=== PATIENT | female | born 1955 ===

== ENCOUNTER → 2017-12-01 | Outpatient (CLI) | payer BC, OTHER ==
[~2017-12-01] MED LIST: ESOM40CA52 PO; HCT25T PO; LEVO5TAB12 PO; LISI1TAB8 PO; OMEP-10 PO; RECEIVED CONTRAST (Hold Metformin) IV SCH
[2017-12-01] MEDS: NS 250 ML (IVPB) BAG IV ONE (11:34)
[2017-12-01] MEDS: IOHEXOL 350 MG/ML 100 ML (OMNIPAQUE 350) VIAL IV ONE (11:34)
[2017-12-01] MEDS: CATHETER FLUSH 10 ML SYR IV PRN (11:34)
--- NOTE | 2017-12-01 12:11 | Diagnostic Imaging Report ---
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 EXAM: Axial CT scan of the neck soft tissue performed with 75 cc of Omnipaque 350 IV contrast. Coronal and sagittal reformatted images are created. COMPARISON: CT scan of the neck soft tissue with contrast dated 08/22/2013. FINDINGS: The nasopharynx, oropharynx, hypopharynx, and laryngeal soft tissue structures are unremarkable and no mass seen. There is mild asymmetry of the piriform sinuses with the right side slightly more prominent than the left which shows no underlying abnormality. The aerodigestive tract is patent. The bilateral salivary glands show no significant abnormality. Stable small left thyroid gland. Again seen small nodules in the thyroid gland bilaterally. Again seen small area of subcutaneous amorphous density to the right of midline posteriorly at the C7 vertebral body level which demonstrates a 5 mm circumscribed low-density area. This may represent a sebaceous cyst. This was not completely imaged on the prior study. There is no neck lymphadenopathy. Visualized portion of the oral cavity, tongue, sublingual and submandibular regions are unremarkable. Visualized upper lung cochran are clear. There is bony thickening and sclerosis involving the bilateral maxillary sinuses with mild to moderate patchy mucosal thickening. There are degenerative spurs involving the mid to lower cervical spine. IMPRESSION: 1: There is no significant neck soft tissue abnormality. The aerodigestive tract is patent. There is no lymphadenopathy. 2: Suspected sebaceous cyst in the right of midline posterior lower neck region. This was incompletely imaged on the prior study. 3: Bilateral maxillary sinus disease with chronic bony changes. Dictated by: Dictated on workstation # [id number]
== END ==
LOC: RAD 10:43
PROVIDERS: ATTEND Nurse Practitioner Family
DX: R07.0 Pain in throat (principal); J32.0 Chronic maxillary sinusitis
CPT/HCPCS: 70491

== ENCOUNTER 2017-12-14 14:30 | Outpatient (CLI) | payer BC ==
[~2017-12-14] VITALS: Ht 156.2 cm; Wt 71.7 kg
[~2017-12-14 14:30] MED LIST changes: -ESOM40CA52 PO; -LEVO5TAB12 PO; -RECEIVED CONTRAST (Hold Metformin) IV SCH
[2017-12-14 14:36] VITALS: BP 119/70
[2017-12-14] MEDS ORDERED: LISI1TAB8 PO (14:39)
[2017-12-14] MEDS ORDERED: ESOM40CA52 PO (14:39)
[2017-12-14] MEDS ORDERED: LEVO5TAB12 PO (14:39)
[2017-12-14 15:02] LABS: BASOPHILS % (AUTO) 0 % (0-10); EOSINOPHILS # (AUTO) 0.3 10^3/uL (0.0-0.3); EOSINOPHILS % (AUTO) 4 % (0-10); HEMATOCRIT 40 % (35-52); LYMPHOCYTES # (AUTO) 1.6 X 10^3 (1.0-4.0); LYMPHOCYTES % (AUTO) 22 % (12-44); MEAN CORPUSCULAR HEMOGLOBIN 28 PG (25-34); MEAN CORPUSCULAR HGB CONC 33 G/DL (32-36); MEAN CORPUSCULAR VOLUME 84 FL (80-99); MEAN PLATELET VOLUME 10.6 FL (7.4-10.4); MONOCYTES # (AUTO) 0.7 X 10^3 (0.0-1.0); MONOCYTES % (AUTO) 9 % (0-12); NEUTROPHILS # (AUTO) 4.7 X 10^3 (1.8-7.8); NEUTROPHILS % (AUTO) 65 % (42-75); PLATELET COUNT 242 10^3/uL (130-400); RED BLOOD COUNT 4.72 10^6/uL (4.35-5.85); RED CELL DISTRIBUTION WIDTH 14.4 % (10.0-14.5); WHITE BLOOD COUNT 7.2 10^3/uL (4.3-11.0)
[2017-12-14 15:39] LABS: BUN/CREATININE RATIO 20; CALCIUM 9.2 MG/DL (8.5-10.1); CARBON DIOXIDE 25 MMOL/L (21-32); CHLORIDE 103 MMOL/L (98-107); CREATININE SERUM 0.71 MG/DL (0.60-1.30); GFR ESTIMATED > 60; GLUCOSE 98 MG/DL (70-105); POTASSIUM 4.1 MMOL/L (3.6-5.0); SODIUM 140 MMOL/L (135-145)
== END 2017-12-14 15:00 | disposition home or self-care (01) ==
LOC: PREOP 14:30
PROVIDERS: ATTEND Otolaryngology Otolaryngology/Facial Plastic Surgery
DX: Z01.810 Encounter for preprocedural cardiovascular examination (principal); Z01.812 Encounter for preprocedural laboratory examination; K14.9 Disease of tongue, unspecified; Z11.2 Encounter for screening for other bacterial diseases
CPT/HCPCS: 36415; 80048; 85025; 87081; 93005

== ENCOUNTER 2017-12-22 06:45 | Day surgery (SDC) | payer BC ==
[~2017-12-22] VITALS: Ht 156.2 cm; Wt 71.7 kg
[~2017-12-22 06:45] MED LIST changes: +ESOM40CA52 PO; +LEVO5TAB12 PO
--- OUTSIDE RECORDS SUMMARY | 2017-12-22 06:50 | XMS REPORT ---
Author Author PENNY AYERS Organization [employer] Address Unknown Phone Unavailable Care Team Providers Care Area Sales Manager Name Role Phone PENNY AYERS CP Unavailable Allergies No Known Allergies Problems Problem Type Condition Code Onset Dates Condition Status Problem Chronic pharyngitis 472.1 Active Problem Other and unspecified hyperlipidemia 272.4 Active Problem Unspecified breast screening V76.10 Active Assessment Elevated fasting glucose R73.01 Active Problem Pure hypercholesterolemia E78.0 Active Problem Hypertension, essential I10 Active Problem Cystic thyroid nodule E04.1 Active Problem Costochondritis 733.6 Active Problem Other disorder of menstruation and other abnormal bleeding from female genital tract 626.8 Active Problem Allergic rhinitis, unspecified allergic rhinitis type J30.9 Active Problem Mammogram abnormal 793.80 Active Medications Medication Code System Code Instructions Start Date End Date Status Dosage Simvastatin [facility] [address]-74 20 mg Orally Once a day Mar 01, 2016 1 tablet in the evening Results No Known Results Summary Purpose eClinicalWorks Submission
--- OUTSIDE RECORDS SUMMARY | 2017-12-22 06:51 | XMS REPORT ---
Author Author PENNY AYERS Organization [employer] Address Unknown Phone Unavailable Care Team Providers Care Equity Director Name Role Phone PENNY AYERS CP Unavailable Allergies No Known Allergies Problems Problem Type Condition Code Onset Dates Condition Status Problem Chronic pharyngitis 472.1 Active Problem Other and unspecified hyperlipidemia 272.4 Active Problem Unspecified breast screening V76.10 Active Problem Pure hypercholesterolemia E78.0 Active Problem Hypertension, essential I10 Active Problem Cystic thyroid nodule E04.1 Active Problem Costochondritis 733.6 Active Problem Other disorder of menstruation and other abnormal bleeding from female genital tract 626.8 Active Problem Allergic rhinitis, unspecified allergic rhinitis type J30.9 Active Problem Mammogram abnormal 793.80 Active Assessment Hypertension, essential I10 Active Assessment Pure hypercholesterolemia E78.0 Active Assessment Cystic thyroid nodule E04.1 Active Medications No Known Medications Procedures Procedure Coding System Code Date THYROGLOBULIN ANTIBODY CPT-4 94877 Feb 23, 2016 ASSAY THYROID STIM HORMONE CPT-4 90105 Feb 23, 2016 MICROSOMAL ANTIBODY CPT-4 99786 Feb 23, 2016 VENIPUNCT, ROUTINE* CPT-4 75452 Feb 23, 2016 ASSAY, TRIIODOTHYRONINE (T3) CPT-4 37252 Feb 23, 2016 ASSAY OF FREE THYROXINE CPT-4 74611 Feb 23, 2016 COMPREHEN METABOLIC PANEL CPT-4 50158 Feb 23, 2016 LIPID PANEL CPT-4 94777 Feb 23, 2016 Results No Known Results Summary Purpose [employer]Works Submission
--- OUTSIDE RECORDS SUMMARY | 2017-12-22 06:51 | XMS REPORT ---
Author Author PENNY AYERS Organization [facility] Address [address] [place] [address] Care Team Providers Care Soil Biology Teacher Name Role Phone ROMEO AYERSSON Unavailable PROBLEMS Type Condition ICD9-CM Code UIR76-OC Code Onset Dates Condition Status SNOMED Code Problem Chronic pharyngitis 472.1 Active 860712 Problem Mammogram abnormal 793.80 Active 459871824 Problem Other and unspecified hyperlipidemia 272.4 Active 29896924 Problem Unspecified breast screening V76.10 Active 499504027 Problem Costochondritis 733.6 Active 14655062 Problem Other disorder of menstruation and other abnormal bleeding from female genital tract 626.8 Active 825087160 Problem Other chronic pain G89.29 Active 09032300 Problem Pain in throat R07.0 Active 65411281 Problem Hypertension, essential I10 Active 45627148 Problem Allergic rhinitis, unspecified allergic rhinitis type J30.9 Active 69181857 Problem Cystic thyroid nodule E04.1 Active 101702122 Problem Pure hypercholesterolemia E78.0 Active 765989662 ALLERGIES Unknown Allergies SOCIAL HISTORY No smoking Hx information available PLAN OF CARE VITAL SIGNS MEDICATIONS Unknown Medications RESULTS Name Result Date Reference Range Ultrasound : Thyroid 2016-08-10 PROCEDURES No Known procedures IMMUNIZATIONS No Known Immunizations
--- OUTSIDE RECORDS SUMMARY | 2017-12-22 06:51 | XMS REPORT ---
Author Author PENNY AYERS Organization [facility] Address [address] [place] [address] Care Team Providers Care Music Producer Name Role Phone PENNY AYERS Unavailable PROBLEMS Type Condition ICD9-CM Code YHM79-NT Code Onset Dates Condition Status SNOMED Code Problem Other chronic pain G89.29 Active 10158476 Problem Pain in throat R07.0 Active 00361887 Problem Hypertension, essential I10 Active 07971918 Problem Allergic rhinitis, unspecified allergic rhinitis type J30.9 Active 40475616 Problem Cystic thyroid nodule E04.1 Active 961433326 Problem Pure hypercholesterolemia E78.0 Active 442172161 ALLERGIES No Information ENCOUNTERS Encounter Location Date Diagnosis [facility] [id number] [id number] Jun, Dental examination Z01.20 and Dental caries K02.9 [facility] [address] [id number] [place] [id number] May, Hypertension, essential I10 [facility] [address] [id number] [place] [id number] Apr, [facility] [id number] [place] [id number] Mar, [facility] [address] [id number] [place] [id number] Mar, [facility] [address] [id number] [place] [id number] Mar, Hypertension, essential I10 [address] [id number] [place] [id number] Mar, Hypertension, essential I10 ; Other chronic pain G89.29 ; Pain in throat R07.0 and Breast cancer screening Z12.31 [facility] [address] [id number] [place] [id number] Feb, Hypertension, essential I10 [facility] [address] [id number] [place] [id number] Jul, Cystic thyroid nodule E04.[address] [facility] [address] [id number] [place]LEY[place] [id number] Feb, Elevated fasting glucose R73.[address] [facility] [address] [id number] [place] [id number] Feb, Elevated fasting glucose R73.[address] [facility] [address] [id number] [place] [address] Feb, Cystic thyroid nodule E04.1 ; Pure hypercholesterolemia E78.0 and Hypertension, essential I10 [facility] [address] [id number] [place] [id number] Feb, [facility] [address] [id number] [place] [id number] Feb, Cystic thyroid nodule E04.1 [facility] [address] [id number] [id number] Feb, [facility] [address] [id number] [place] [id number] Feb, Hypertension, essential I10 and Pharyngeal dysphagia R13.[address] [facility] [address] [id number] [place]LEY[place] [id number] Dec, [facility] [address] [id number] [place] [id number] Dec, Pure hypercholesterolemia E78.0 and Hypertension, essential I10 [facility] [address] [id number] [place] [id number] November, [facility] [address] [id number] [place] [id number] November, Hypertension, essential I10 ; Pure hypercholesterolemia E78.0 and Allergic rhinitis, unspecified allergic rhinitis type J30.9 [facility]ITALCheryle SMALLWOODRODRIGUEZ [address] [facility] [address] [id number] VALLEY[place] [id number] November, [facility] [facility] [address] [id number] [place] [id number] November, [facility] [address] [facility] [address] [id number] VALLEY[place] [id number] November, [facility] Torres [facility] [address] [id number] [place] [id number] November, Visit for routine cat and dog bather exam V72.31 ; Pap smear for cervical cancer screening V76.2 ; Mammogram abnormal 793.80 and Colon cancer screening V76.51 [facility] [address] [id number] [place] [id number] November, Abnormal mammogram, unspecified 793.80 [facility] [place] [facility] [address], [place] [address] Oct, [facility] [place] [facility] [address]00565100[place], [place] [address] Oct, [facility] [place] [facility] [address]65100[place], [place] [address] Aug, [facility] [place] [facility] [address]65100[place], [place] [address] Aug, [facility] [place] [facility] [address], [place] [address] Jul, [facility] [place] [facility] [address], [place] [address] Jul, [facility] [place] [facility] [address]65100[place], [place] [address] Jul, [facility] [place] [facility] [address] [address] Jul, [facility] [place] [facility] [address], [place] [address] Jul, [facility] [place] [facility] [address] [id number] [place] [address] Jul, [facility] [place] [facility] [address] [id number] [place] [address] Jul, [facility] [place] [facility] [address] [id number] [place] [address] Jul, [facility] [place] [facility] [address] [id number] [place] [address] Jul, [facility] [place] [facility] [address] [id number] [place] [address] Jul, [facility] [place] [facility] [address] [id number] [place] [address] Jul, [facility] [address] [id number] [place] [address] May, [facility] [address] [id number] [place] [id number] May, [facility] [address] [id number] [place] [address] May, [facility] [place] [facility] [address] [id number] [place] [address] May, [facility] [place] [facility] [address] [id number] [place] [address] Apr, [facility] [place] [facility] [address] [id number] [place] [address] Apr, [facility] [place] [facility] [address] [id number] [place] [address] Jan, [facility] [place] [facility] [address] [id number] [place] [address] Jan, [facility] [place] [facility] [address] [id number] [place] [address] Dec, [facility] [place] [facility] [address] [id number] [place] [address]- [address] Dec, [facility] [place] [facility] [address] [id number] [place] [address] Dec, [facility] [place] [facility] [address] [id number] [place] [address] Dec, [facility] [place] [facility] [address] [id number] [place] [address] Dec, [facility] [place] [facility] [address] [id number] [place] [address] Dec, [facility] [place] [facility] [address] [id number] [place] [address] Oct, [facility] [place] [facility] [address] [id number] [place] [address]- [address] Oct, [facility] [place] [facility] [address] [id number] [place] [address] Oct, [facility] [place] [facility] [address] [id number] [place] [address] Oct, [facility] [place] [facility] [address] [id number] [place] [address] Oct, [facility] [place] [facility] [address] [id number] [place] [address] Oct, [facility] [place] [facility] [address] [id number] [place] [address]- [address] Oct, [facility] [place] [facility] [address] [id number], [place] [address] Oct, [facility] [place] [facility] [address] [id number] [place] [address]- [address] Oct, [facility] [place] [facility] [address] [id number] [place] [address]- [address] Oct, [facility] [place] [facility] [address] [id number] [place] [address] Sep, [facility] [place] [facility] [address] [id number] [place] [address]- [address] Sep, [facility] [address] [id number] [place] [address] Jul, [facility] [place] [facility] [address] [id number] [place] [address]- [address] Jul, [facility] [place] [facility] [address] [id number] [place] [address]- [address] Jul, [facility] [place] [facility] [address] [id number] [place] [address]- [address] Jul, [facility] [place] [facility] [address] [id number] [place] [address] Jul, [facility] [place] [facility] [address] [id number] [place] [address]- [address] Jun, [facility] [address] [id number] [place] [address]- 87[address] Jun, [facility] [place] [facility] [address] [id number] [place] [address]- [address] May, [facility] [place] [facility] [address] [id number] [place] [address]- [address] May, [facility] [place] [facility] [address] [id number] [place] [address]- 38[address] May, [facility] [place] [facility] [address] [id number] [place] [address]- [address] May, [facility] [place] [facility] [address] [id number] [place] [address]- [address] Apr, [facility] [place] [facility] [address] [id number] [place] [address]- 9771 Apr, [facility] [place] [facility] [address] [id number] [place] [address]- [address] Feb, [facility] [place] [facility] [address] [id number] [place] [address]- 2805 Dec, [facility] [place] [facility] [address] [id number] [place] [address]- [address] November, [facility] [address] [id number] [place] [id number] Aug, [facility] [place] [facility] [address] [facility] [id number] [place] [address]- [address] May, [facility] [place] [facility] [address] [id number] [place] [address]- 4698 May, [facility] [place] [facility] [address] [id number] [place] [address]- 8[address] May, [facility] [place] [facility] [address] [id number] [place] [address]- [address] May, [facility] [place] [facility] [address] [facility] [id number] [place] [address]- [address] Apr, [facility] [place] [facility] [address] [id number] [place] [address]- 405[address] Apr, [facility] [place] [facility] [address] [id number] [place] [address]- [address]349 Apr, [facility] [place] [facility] [address] [id number] [place] [address]- 9500 Apr, [facility] [place] [facility] [address] [id number] [place] [address]- [address] Apr, [facility] [place] [facility] [address] [id number] [place] [address]- [address] Mar, [facility] [place] [facility] [address] [id number] [place] [address]- 3396 Mar, [facility] [place] [facility] [address] [id number] [place] [address]- 6446 Mar, [facility] [place] [facility] [address] [facility] [id number] [place] [address]- 3836 Feb, [facility] [place] [facility] [address] [id number] [place] [address]- [address] Feb, [facility] [place] [facility] [address] [facility] [id number] [place] [address] Jan, [facility] [place] [facility] [address] [facility] [id number] [place] [address] Sep, IMMUNIZATIONS No Known Immunizations SOCIAL HISTORY Never Assessed REASON FOR VISIT PLAN OF CARE VITAL SIGNS MEDICATIONS No Known Medications RESULTS No Results PROCEDURES No Known procedures INSTRUCTIONS MEDICATIONS ADMINISTERED No Known Medications MEDICAL (GENERAL) HISTORY Type Description Date Medical History EGD Dr Lau Medical History Chronic Throat pain and PND which she has seen Dr Lau for in the past Medical History Colonoscopy 01/02/14 Normal Medical History hypertension Medical History hyperlipidemia Medical History obesity Medical History Endocrine disorder Metabolic Syndrome X Medical History mammogram WNL Surgical History sinus surgery 06/20/2014
--- OUTSIDE RECORDS SUMMARY | 2017-12-22 06:51 | XMS REPORT ---
Author Author PENNY AYERS Organization [employer] Address Unknown Phone Unavailable Care Team Providers Care Hostage Negotiator Name Role Phone PENNY AYERS CP Unavailable [...] Active Problem Mammogram abnormal 793.80 Active Medications No Known Medications Procedures Procedure Coding System Code Date GLYCATED HEMOGLOBIN TEST CPT-4 64435 Mar 02, 2016 Results No Known Results Summary Purpose [employer]Clinical[employer] Submission
--- OUTSIDE RECORDS SUMMARY | 2017-12-22 06:51 | XMS REPORT ---
Author Author PENNY AYERS Organization [facility]ard[facility]RODR[facility] Address [address] [place] [address] Care Team Providers Care Long Chain Quiller Tender Name Role Phone PENNY AYERS Unavailable PROBLEMS Type Condition ICD9-CM Code FPO75-GO Code Onset Dates Condition Status SNOMED Code Problem Other chronic pain G89.29 Active 38522612 Problem Pain in throat R07.0 Active 93976578 Problem Hypertension, essential I10 Active 37422626 Problem Allergic rhinitis, unspecified allergic rhinitis type J30.9 Active 71414156 Problem Cystic thyroid nodule E04.1 Active 226381679 Problem Pure hypercholesterolemia E78.0 Active 160774818 ALLERGIES No Information ENCOUNTERS Encounter Location Date Diagnosis [facility] [facility] [id number], [place] [id number] Jun, Dental examination Z01.20 and Dental caries K02.9 [facility] [address] [id number], [place] [id number] May, Hypertension, essential I10 [facility] [address] [id number], [place] [id number] Apr, [facility] [address] [id number], [place] [id number] Mar, [facility]Zip[facility] [address] [id number], [place] [id number] Mar, [facility] [address] [id number], [place] [id number] Mar, Hypertension, essential I10 [facility] [id number], [place] [id number] Mar, Hypertension, essential I10 ; Other chronic pain G89.29 ; Pain in throat R07.0 and Breast cancer screening Z12.31 [facility] [address] [id number], [place] [id number] Feb, Hypertension, essential I10 [facility] [address] [id number][place] [id number] Jul, Cystic thyroid nodule E04.[address] [facility] [address] [id number], [place] [id number] Feb, Elevated fasting glucose R73.[address] [facility] [address] [id number], [place] [id number] Feb, Elevated fasting glucose R73.[address] [facility] [address] [id number], [place] [id number] Feb, Cystic thyroid nodule E04.1 ; Pure hypercholesterolemia E78.0 and Hypertension, essential I10 [facility] [address] [id number], [place] [id number] Feb, [facility] [address] [id number], [place] [id number] Feb, Cystic thyroid nodule E04.1 [facility] [address] [id number] [address] Feb, [facility] [address] [id number], [place] [id number] Feb, Hypertension, essential I10 and Pharyngeal dysphagia R13.[address] [facility] [address] [id number], [place] [id number] Dec, [facility] [address] [id number], [place] [address] Dec, Pure hypercholesterolemia E78.0 and Hypertension, essential I10 [facility] [address] [id number], [place] [id number] November, [facility] [address] [id number], [place] [id number] November, Hypertension, essential I10 ; Pure hypercholesterolemia E78.0 and Allergic rhinitis, unspecified allergic rhinitis type J30.9 [facility]ENTERCheryle SMALLWOODRODRIGUEZ [address] [facility] [address] [id number], [place] [id number] November, [facility]ITALNEGRITA R[address]Z [address] [facility] [address] [id number], [place] [id number] November, [facility]ITALNEGRITA R[address]RIGUEZ [address] [facility] [address] [id number], [place] [id number] November, [facility]ITALNEGRITA Torres [facility] [address] [id number], [place] [id number] November, Visit for routine pretzel cooker exam V72.31 ; Pap smear for cervical cancer screening V76.2 ; Mammogram abnormal 793.80 and Colon cancer screening V76.51 [facility]ITALNEGRITA Torres [facility] [address] [id number], [place] [id number] November, Abnormal mammogram, unspecified 793.80 [facility] [id number], [place] [address] Oct, [facility] [id number], [place] [address] Oct, [facility] [id number], [place] [address] Aug, [facility] [id number], [place] [address] Aug, [facility] [address]00565100[place], [place] [address] Jul, [facility] [id number], [place] [address] Jul, [facility] [address]00565100[place], [place] [address] Jul, [facility] [id number] [address] Jul, [facility] [address]00565100[place], [place] [address] Jul, [facility] [place] [facility] [address] [id number] [place] [address] Jul, [facility] [place] [facility] [address] [id number] [place] [address] Jul, [facility] [place] [facility] [address] [id number] [place] [address] Jul, [facility] [place] [facility] [address] [id number] [place] [address] Jul, [facility] [place] [facility] [address] [id number] [place] [address] Jul, [facility] [place] [facility] [address] [id number] [place] [address] Jul, [facility] [address] [id number] [place] [address] May, [facility] [address] [id number] [place] [id number] May, [facility] [address] [id number] [place] [address] May, [facility] [place] [facility] [address] [id number] [place] [address]- [address] May, [facility] [place] [facility] [address] [id number] [place] [address]- [address] Apr, [facility] [place] [facility] [address] [id number] [place] [address]- [address] Apr, [facility] [place] [facility] [address] [id number] [place] [address]- [address] Jan, [facility] [place] [facility] [address] [id number] [place] [address] Jan, [facility] [place] [facility] [address] [id number] [place] [address]- [address] Dec, [facility] [place] [facility] [address] [id number] [place] [address]- [address] Dec, [facility] [place] [facility] [address] [id number] [place] [address]- [address] Dec, [facility] [place] [facility] [address] [id number] [place] [address] Dec, [facility] [place] [facility] [address] [id number] [place] [address] Dec, [facility] [place] [facility] [address] [id number] [place] [address] Dec, [facility] [place] [facility] [address] [id number] [place] [address] Oct, [facility] [place] [facility] [address] [id number] [place] [address] Oct, [facility] [place] [facility] [address] [id number] [place] [address] Oct, [facility] [place] [facility] [address] [id number] [place] [address]- [address] Oct, [facility] [place] [facility] [address] [id number] [place] [address]- [address] Oct, [facility] [place] [facility] [address] [id number] [place] [address] Oct, [facility] [place] [facility] [address] [id number] [place] [address]- [address] Oct, [facility] [place] [facility] [address] [id number], [place] [address] Oct, [facility] [place] [facility] [address] [id number] [place] [address]- [address] Oct, [facility] [place] [facility] [address] [id number] [place] [address]- 27[address] Oct, [facility] [place] [facility] [address] [id number] [place] [address]- [address] Sep, [facility] [place] [facility] [address] [id number] [place] [address]- [address] Sep, [facility] [address] [id number] [place] [address]- [address] Jul, [facility] [place] [facility] [address] [id number] [place] [address]- [address] Jul, [facility] [place] [facility] [address] [id number] [place] [address]- [address] Jul, [facility] [place] [facility] [address] [id number] [place] [address]- [address] Jul, [facility] [place] [facility] [address] [id number] [place] [address]- 4568 Jul, [facility] [place] [facility] [address] [id number] [place] [address]- [address] Jun, [facility] [address] [id number] [place] [address]- [address] Jun, [facility] [place] [facility] [address] [id number] [place] [address]- [address] May, [facility] [place] [facility] [address] [id number] [place] [address]- [address] May, [facility] [place] [facility] [address] [id number] [place] [address]- [address] May, [facility] [place] [facility] [address] [id number] [place] [address]- 9737 May, [facility] [place] [facility] [address] [id number] [place] [address]- [address] Apr, [facility] [place] [facility] [address] [id number] [place] [address]- [address] Apr, [facility] [place] [facility] [address] [id number] [place] [address]- [address] Feb, [facility] [place] [facility] [address] [id number] [place] [address]- [address]137 Dec, [facility] [place] [facility] [address] [id number] [place] [address]- [address] November, [facility] [address] [id number] [place] [id number] Aug, [facility] [place] [facility] [address] [facility] [id number] [place] [address]- [address] May, [facility] [place] [facility] [address] [id number] [place] [address]- 26[address] May, [facility] [place] [facility] [address] [id number] [place] [address]- [address] May, [facility] [place] [facility] [address] [id number] [place] [address]- 6461 May, [facility] [place] [facility] [address] [facility] [id number] [place] [address]- [address] Apr, [facility] [place] [facility] [address] [id number] [place] [address]- [address]646 Apr, [facility] [place] [facility] [address] [id number] [place] [address]- 4[address] Apr, [facility] [place] [facility] [address] [id number] [place] [address]- 8931 Apr, [facility] [place] [facility] [address] [id number] [place] [address]- [address] Apr, [facility] [place] [facility] [address] [id number] [place] [address]- 7760 Mar, [facility] [place] [facility] [address] [id number] [place] [address]- 1073 Mar, [facility] [place] [facility] [address] [id number] [place] [address]- 96[address] Mar, [facility] [place] [facility] [address] [facility] [id number] [place] [address]- 6386 Feb, [facility] [place] [facility] [address] [id number] [place] [address]- 6991 Feb, [facility] [address] [facility] [id number] [place] [address] Jan, [facility] [address] [facility] [id number] [place] [address] Sep, IMMUNIZATIONS No Known Immunizations SOCIAL HISTORY Never Assessed REASON FOR VISIT Test results PLAN OF CARE VITAL SIGNS MEDICATIONS No [...]
--- OUTSIDE RECORDS SUMMARY | 2017-12-22 06:51 | XMS REPORT ---
Author Author PENNY AYERS Organization [employer] Address Unknown Phone Unavailable Care Team Providers Care Ring Striker Name Role Phone PENNY AYERS CP Unavailable Allergies, Adverse Reactions, Alerts Substance Reaction Event Type N.K.D.A. Info Not Available Non Drug Allergy Problems Problem Type Condition Code Onset Dates Condition Status Assessment Hypertension, essential I10 Active Problem Unspecified breast screening V76.10 Active Problem Chronic pharyngitis 472.1 Active Assessment Pharyngeal dysphagia R13.13 Active Problem Hypertension, essential I10 Active Problem Allergic rhinitis, unspecified allergic rhinitis type J30.9 Active Problem Pure hypercholesterolemia E78.0 Active Problem Other disorder of menstruation and other abnormal bleeding from female genital tract 626.8 Active Problem Other and unspecified hyperlipidemia 272.4 Active Problem Mammogram abnormal 793.80 Active Problem Costochondritis 733.6 Active Medications Medication Code System Code Instructions Start Date End Date Status Dosage Singulair [facility] [address]-69 10 mg Orally Once a day Jul 17, 2014 1 tablet in the evening Lisinopril-Hydrochlorothiazide [facility] [address]-13 20-12.5 MG Orally Once a day Aug 21, 2014 take 1 tablet by oral route once daily Metoprolol Tartrate [facility] [address]-20 25 MG Orally Once a day 1 tablet with food Metoprolol Succinate ER [facility] [address]-00 25 MG Orally Once a day at bedtime Feb 10, 2016 1 tablet Procedures Procedure Coding System Code Date Office Visit, Est Pt., Level 3 CPT-4 17628 Feb 10, 2016 Vital Signs Date/Time: Feb 10, 2016 Cardiac Monitoring Heart Rate 70 bpm Weight 168.3 lbs Height 62 in BMI 30.78 Index Blood Pressure Diastolic 68 mmHg Blood Pressure Systolic 122 mmHg Results No Known Results Summary Purpose [employer] Submission
--- OUTSIDE RECORDS SUMMARY | 2017-12-22 06:51 | XMS REPORT ---
Author Author PENNY AYERS Organization [employer] Address Unknown Phone Unavailable Care Team Providers Care Tenant Selector Name Role Phone PENNY AYERS CP Unavailable [...] abnormal 793.80 Active Medications No Known Medications Results No Known Results Summary Purpose [employer] Submission
--- OUTSIDE RECORDS SUMMARY | 2017-12-22 06:52 | XMS REPORT ---
Author Author PENNY AYERS Organization [facility] Outdoor TechnologiesTER Address [address] [place] [address] Care Team Providers Care Public Health Internship Name Role Phone PENNY AYERS Unavailable PROBLEMS Type Condition ICD9-CM Code YNG84-XD Code Onset Dates Condition Status SNOMED Code Problem Other chronic pain G89.29 Active 06941075 Problem Pain in throat R07.0 Active 63048893 Problem Hypertension, essential I10 Active 14772799 Problem Allergic rhinitis, unspecified allergic rhinitis type J30.9 Active 16653490 Problem Cystic thyroid nodule E04.1 Active 169431743 Problem Pure hypercholesterolemia E78.0 Active 405782196 ALLERGIES No Known Allergies ENCOUNTERS Encounter Location Date Diagnosis [facility] [address] [id number][place] [id number] November, Hypertension, essential I10 [facility] [address] [address] [id number], [place] [address] November, Hypertension, essential I10 [facility] [address] [id number], [place] [address] November, Hypertension, essential I10 and Pain in throat R07.0 [facility] [address] [id number], [place] [address] Jun, Dental examination Z01.20 and Dental caries K02.9 [facility] [address] [address] [id number], [place] [address] May, Hypertension, essential I10 [facility] [address] [address] [id number], [place] [address] Apr, [facility] [address] [id number], [place] [address] Mar, [facility] [address] [address] [id number] [place] [address] Mar, [facility] [address] [id number], [place] 389[address] Mar, Hypertension, essential I10 [facility] [address] [id number], [place] [address] Mar, Hypertension, essential I10 ; Other chronic pain G89.29 ; Pain in throat R07.0 and Breast cancer screening Z12.[address] [facility] [address] [id number], [place] [address] Feb, Hypertension, essential I10 [facility] [address] [id number], [place] [address] Jul, Cystic thyroid nodule E04.[address] [facility] [address] [id number], [place] [address] Feb, Elevated fasting glucose R73.[address] [facility] [address] [id number], [place] [address]227[address] Feb, Elevated fasting glucose R73.[address] [facility] [address] [id number], [place] [address]8613572 Feb, Cystic thyroid nodule E04.1 ; Pure hypercholesterolemia E78.0 and Hypertension, essential I10 [facility] [address] [id number], [place] [address] Feb, [facility] [address] [id number], [place] 869607658 Feb, Cystic thyroid nodule E04.1 [facility] [address] [facility] [id number], [place] [address] Feb, [facility] [address] [id number], [place] 197864352 Feb, Hypertension, essential I10 and Pharyngeal dysphagia R13.[address] [facility] [address] [id number], [place] [address]397[address] Dec, [facility] [address] [id number] [place] [address] Dec, Pure hypercholesterolemia E78.0 and Hypertension, essential I10 [facility] [address] [id number], [place] [address] November, [facility] [address] [address] [id number], [place] [address]17 November, Hypertension, essential I10 ; Pure hypercholesterolemia E78.0 and Allergic rhinitis, unspecified allergic rhinitis type J30.9 [facility] [address] [address] [id number], [place] 8624654[address] November, [facility] [address] [id number], [place] 685628050 November, [facility] [address] [facility] [address] [id number], [place] [address]186[address] November, [facility] [address] [place] [address] AVE [id number], [place] [address] November, 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.31 ; Pap smear for cervical cancer screening V76.2 ; Mammogram abnormal 793.80 and Colon cancer screening V76.51 [facility]PITALCheryle SMALLWOODRODRIGUEZ [address] [facility] [address] [id number], [place] [id number] November, Abnormal mammogram, unspecified 793.80 [facility] [address] [id number], [place] [address] Oct, [facility] [address]00565100[place], [place] [address] Oct, [facility] [address] [id number], [place] [address] Aug, [facility] [address]00565100[place], [place] [address] Aug, [facility] [address] [id number], [place] [address] 3049 Jul, [facility] [address]00565[address] [address] Jul, [facility] [address] [id number] [place] [address] Jul, [facility] [place] [facility] [address] [id number] [place] [address]- [address] Jul, [facility] [place] [facility] [address] [id number] [place] [address]- 2900 Jul, [facility] [place] [facility] [address] [id number] [place] [address]- 2596 Jul, [facility] [place] [facility] [address] [id number] [place] [address]- [address]78 Jul, [facility] [place] [facility] [address] [id number] [place] [address]- 2820 Jul, [facility] [place] [facility] [address] [facility] [id number] [place] [address]- 3630 Jul, [facility] [address] [id number], [place] [address]- [address] Jul, [facility] [place] [facility] [address] [facility] [id number], [place] [address]- [address]236 Jul, [facility] [address] [facility] [id number], [place] [address] May, [facility] [address] [id number], [place] [address]32 May, [facility] [place] [facility] [address] [id number], [place] [address]- [address] May, [facility] [place] [facility] [address] [facility] [id number], [place] [address]- 9745 May, [facility] [place] [facility] [address] [facility] [id number], [place] [address]- 6968 Apr, [facility] [place] [facility] [address] [id number] [place] [address]- 2070 Apr, [facility] [place] [facility] [address] [id number] [place] [address]- [address] Jan, [facility] [place] [facility] [address] [id number] [place] [address] Jan, [facility] [place] [facility] [address] [id number] [place] [address] Dec, [facility] [place] [facility] [address] [id number] [place] [address]- 3698 Dec, [facility] [place] [facility] [address] [id number] [place] [address]- 7395 Dec, [facility] [place] [facility] [address] [id number] [place] [address]- 9263 Dec, [facility] [place] [facility] [address] [id number] [place] [address]- 2026 Dec, [facility] [place] [facility] [address] [id number] [place] [address]- 3118 Dec, [facility] [place] [facility] [address] [id number] [place] [address]- 6875 Oct, [facility] [place] [facility] [address] [id number] [place] [address]- 1544 Oct, [facility] [place] [facility] [address] [id number] [place] [address]- 7905 Oct, [facility] [place] [facility] [address] [id number] [place] [address]- 6669 Oct, [facility] [place] [facility] [address] [id number] [place] [address]- 2875 Oct, [facility] [place] [facility] [address] [id number] [place] [address]- 6807 Oct, [facility] [place] [facility] [address] [id number] [place] [address]68 Oct, [facility] [place] [facility] [address] [id number] [place] [address]- 5[address] Oct, [facility] [place] [facility] [address] [id number] [place] [address]- 3564 Oct, [facility] [place] [facility] [address] [id number] [place] [address]- 9454 Oct, [facility] [place] [facility] [address] [id number] [place] [address]- 6203 Sep, [facility] [place] [facility] [address] [id number] [place] [address]- 2496 Sep, [facility] [place] [facility] [address] [id number] [place] [address]- 1362 Jul, [facility] [place] [facility] [address] [id number] [place] [address]- 2288 Jul, [facility] [place] [facility] [address] [id number] [place] [address]- 8000 Jul, [facility] [place] [facility] [address] [id number] [place] [address]- 3103 Jul, [facility] [place] [facility] [address] [id number] [place] [address]- 9274 Jul, [facility] [place] [facility] [address] [id number] [place] [address]- 4767 Jun, [facility] [place] [facility] [address] [id number], [place] [address]- 5864 Jun, [facility] [place] [facility] [address] [id number], [place] [address]- 0320 May, [facility] [place] [facility] [address] [id number] [place] [address]- 0850 May, [facility] [place] [facility] [address] [id number], [place] [address]- 3108 May, [facility] [place] [facility] [address] [id number] [place] [address]- 9793 May, [facility] [place] [facility] [address] [id number], [place] [address]- 0989 Apr, [facility] [address] [facility] [id number] [place] [address]- 6850 Apr, [facility] [place] [facility] [address] [facility] [id number], [place] [address]- 0438 Feb, [facility] [address] [facility] [id number], [place] [address]- 3682 Dec, [facility] [place] [facility] [address] [facility] [id number], [place] [address]- [address]26 November, [facility] [address] [id number], [place] [address] Aug, [facility] [address]00565100[place], [place] [address]- 9084 May, [facility] [address]00565100[place], [place] [address]- 0104 May, [facility] [place] [facility] [address] [id number], [place] [address]- 4760 May, [facility] [place] [facility] [address] [id number] [address]- 6877 May, [facility] [place] [facility] [address] [id number] [address]- 3751 Apr, [facility] [place] [facility] [address] [id number], [place] [address]- 6034 Apr, [facility] [place] [facility] [address] [facility] [id number], [place] [address]- 0215 Apr, [facility] [place] [facility] [address] [facility] [id number], [place] [address]- 8474 Apr, [facility] [place] [facility] [address] [facility] [id number], [place] [address]- 1745 Apr, [facility] [place] [facility] [address] [id number], [place] [address]- 4445 Mar, [facility] [place] [facility] [address] [facility] [id number] [place] [address]- 2546 Mar, [facility] [address] [facility] [id number], [place] [address] 2546 Mar, [facility] [address] [facility] [id number], [place] [address]- 2546 Feb, [facility] [address] [facility] [id number], [place] [address]- 2546 Feb, [facility] [address] [facility] [id number], [place] [address]- 2546 Jan, [facility] [address] [facility] [id number], [place] [address] 2546 Sep, IMMUNIZATIONS No Known Immunizations SOCIAL HISTORY Never Assessed REASON FOR VISIT Blood Pressure. KSartin PLAN OF CARE Activity Details Follow Up 6 Months Reason:b/p VITAL SIGNS Height 62 in 2017-05-16 Weight 157.4 lbs 2017-05-16 Temperature 97.8 degrees Fahrenheit 2017-05-16 Heart Rate 85 bpm 2017-05-16 Respiratory Rate 16 2017-05-16 Oximetry 95 % 2017-05-16 BMI 28.79 kg/m2 2017-05-16 Blood pressure systolic 132 mmHg 2017-05-16 Blood pressure diastolic 70 mmHg 2017-05-16 MEDICATIONS Medication Instructions Dosage Frequency Start Date End Date Duration Status Nexium 40 mg Orally Once a day 1 capsule 24h Mar, Active Xyzal 5 mg Orally Once a day 1 tablet in the evening 24h Mar, Active Lisinopril-Hydrochlorothiazide 20-12.5 MG Orally Once a day take 1 tablet by oral route once daily 24h Aug, Active RESULTS No Results PROCEDURES No Known procedures [...]
--- OUTSIDE RECORDS SUMMARY | 2017-12-22 06:52 | XMS REPORT ---
Author Author PENNY AYERS Organization [facility]PITALStrikeForce TechnologiesRODRIGUEZ Address [address] [place] [address] Care Team Providers Care Paid Internship Name Role Phone PENNY AYERS Unavailable PROBLEMS Type Condition ICD9-CM Code PKV14-MT Code Onset Dates Condition Status SNOMED Code Problem Other chronic pain G89.29 Active 71377193 Problem Pain in throat R07.0 Active 84441961 Problem Hypertension, essential I10 Active 13213238 Problem Allergic rhinitis, unspecified allergic rhinitis type J30.9 Active 39425472 Problem Cystic thyroid nodule E04.1 Active 422450638 Problem Pure hypercholesterolemia E78.0 Active 261990115 ALLERGIES No Information ENCOUNTERS Encounter Location Date [facility] [address] [id number], [place] [address] Jun, Dental examination Z01.20 and Dental caries K02.9 [facility]ENTERShine Technologies Corp[address] [id number], [place] [address] May, Hypertension, essential I10 [facility] [address] [id number], [place] [address] Apr, [facility] Pending sale to [facility] [facility] [address] [id number], [place] [address] Mar, [facility] Pending sale to [facility] [address] [id number], [place] [address] Mar, [facility] Pending sale to [facility] [address] [id number], [place] [address] 08 Mar, 2017 Hypertension, essential I10 [facility] [id number], [place] [address] Mar, Hypertension, essential I10 ; Other chronic pain G89.29 ; Pain in throat R07.0 and Breast cancer screening Z12.31 [facility]WordSentry [address] [id number], [place] [address] Feb, Hypertension, essential I10 [facility] [address] [id number], [place] [address] Jul, Cystic thyroid nodule E04.[address] [facility] [address] [id number], [place] [address] Feb, Elevated fasting glucose R73.[address] [facility] [address] [id number], [place] 880477575 Feb, Elevated fasting glucose R73.[address] [facility] [address] [id number], [place] [address]166695 Feb, Cystic thyroid nodule E04.1 ; Pure hypercholesterolemia E78.0 and Hypertension, essential I10 [facility] [address] [id number], [place] [address] Feb, [facility] [address] [id number], [place] [address] Feb, Cystic thyroid nodule E04.1 [facility] [address] [id number] [address]- [address] Feb, [facility] [address] [id number], [place] [address] Feb, Hypertension, essential I10 and Pharyngeal dysphagia R13.[address] [facility] [address] [id number], [place] 355[address] Dec, [facility] [address] [id number], [place] [address] Dec, Pure hypercholesterolemia E78.0 and Hypertension, essential I10 [facility] [address] [id number], [place] [address] November, [facility] [address] [id number], [place] [address] November, Hypertension, essential I10 ; Pure hypercholesterolemia E78.0 and Allergic rhinitis, unspecified allergic rhinitis type J30.9 [facility] HOSPITALCheryle SMALLWOODRODRIGUEZ [address] [facility] [address] [id number], [place] [address] November, [facility]ENTERNEGRITA [facility] [facility] [address] [id number], [place] [address] November, [facility]ENTERNEGRITA [address] [facility] [address] [id number], [place] 434[address] November, [facility]ENTERNEGRITA Torres [facility] [address] [id number], [place] [address] November, 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 for routine imaging engineer exam V72.31 ; Pap smear for cervical cancer screening V76.2 ; Mammogram abnormal 793.80 and Colon cancer screening V76.51 [facility] CENTERNEGRITA Torres [facility] [address] [id number], [place] [address] November, Abnormal mammogram, unspecified 793.80 [facility] [address]00565100[place] [address]- [address] Oct, [facility] [address]00565100[place] [address]- 7186 Oct, [facility] [address]00565100[place] [address]- 0581 Aug, [facility] [address]00565100[place] [address]- 5357 Aug, [facility] [address]00565100[place] [address]- 7648 Jul, [facility] [address]00565100[place] [address]- 1262 Jul, [facility] [address]00565100[place] [address]- 2454 Jul, [facility] [address]00565100[place] [address]65814- 1615 Jul, [facility] [address]00565100[place] [address]- 5173 Jul, [facility] [place] [facility] [address] [id number] [place] [address]- 2546 Jul, [facility] [place] [facility] [address] [id number] [place] [address]- 2546 Jul, [facility] [place] [facility] [address] [id number] [place] [address]- 2546 Jul, [facility] [place] [facility] [address] [id number] [place] [address]- 2546 Jul, [facility] [place] [facility] [address] [id number] [place] [address]- 2546 Jul, [facility] [place] [facility] [address] [id number] [place] [address]- 0666 Jul, [facility] [address] [id number] [address]- 4586 May, [facility] [address] [id number] [place] [id number] May, [facility] [address] [id number] [place] [address]- 5296 May, [facility] [place] [facility] [address] [id number] [place] [address]- 2546 May, [facility] [place] [facility] [address] [id number] [address]- 2546 Apr, [facility] [place] [facility] [address] [id number] [place] [address]- 2546 Apr, [facility] [place] [facility] [address] [id number] [place] [address]- 2546 Jan, [facility] [place] [facility] [address] [id number] [place] [address]- 2546 Jan, [facility] [place] [facility] [address] [id number] [place] [address]- 2546 Dec, [facility] [place] [facility] [address] [id number] [place] [address]- 9245 Dec, [facility] [place] [facility] [address] [id number] [place] [address]- 9578 Dec, [facility] [place] [facility] [address] [id number] [place] [address]- 5999 Dec, [facility] [place] [facility] [address] [id number] [place] [address]- 4711 Dec, [facility] [place] [facility] [address] [id number] [place] [address]- 8516 Dec, [facility] [place] [facility] [address] [id number] [place] [address]- 9508 Oct, [facility] [place] [facility] [address] [id number] [place] [address]- 9851 Oct, [facility] [place] [facility] [address] [id number] [place] [address]- 3977 Oct, [facility] [place] [facility] [address] [id number] [place] [address]- 6554 Oct, [facility] [place] [facility] [address] [id number] [place] [address]- 9340 Oct, [facility] [place] [facility] [address] [id number] [place] [address] Oct, [facility] [place] [facility] [address] [id number] [place] [address] Oct, [facility] [place] [facility] [address] [id number] [address] Oct, [facility] [place] [facility] [address] [id number] [place] [address] Oct, [facility] [place] [facility] [address] [id number] [place] [address] Oct, [facility] [place] [facility] [address] [id number] [place] [address] Sep, [facility] [place] [facility] [address] [id number] [place] [address] Sep, [facility] [address] [id number] [place] [address] Jul, [facility] [place] [facility] [address] [id number] [place] [address] Jul, [facility] [place] [facility] [address] [id number] [place] [address] Jul, [facility] [place] [facility] [address] [id number] [place] [address] Jul, [facility] [place] [facility] [address] [id number] [place] [address] Jul, [facility] [place] [facility] [address] [id number] [place] [address] Jun, [facility] [address] [id number] [place] [address] Jun, [facility] [place] [facility] [address] [id number] [place] [address] May, [facility] [place] [facility] [address] [id number] [place] [address] May, [facility] [place] [facility] [address] [id number] [place] [address] May, [facility] [place] [facility] [address] [id number] [place] [address] May, [facility] [place] [facility] [address] [id number] [place] [address] Apr, [facility] [place] [facility] [address] [id number] [place] [address] Apr, [facility] [place] [facility] [address] [id number] [place] [address] Feb, [facility] [place] [facility] [address] [id number] [place] [address] Dec, [facility] [place] [facility] [address] [id number] [place] [address] November, [facility] [address] [id number] [place] [id number] Aug, [facility] [place] [facility] [address] [facility] [id number] [place] [address] May, [facility] [place] [facility] [address] [id number] [place] [address] May, [facility] [place] [facility] [address] [id number] [place] [address] May, [facility] [place] [facility] [address] [id number] [place] [address] May, [facility] [place] [facility] [address] [facility] [id number] [place] [address] Apr, [facility] [place] [facility] [address] [id number] [place] [address] Apr, [facility] [place] [facility] [address] [id number] [place] [address] Apr, [facility] [place] [facility] [address] [id number] [place] [address] Apr, [facility] [place] [facility] [id number] [address] Apr, [facility] [place] [facility] [address] [id number] [place] [address] Mar, [facility] [place] [facility] [address] [id number] [place] [address] Mar, [facility] [place] [facility] [address] [id number] [place] [address] Mar, [facility] [place] [facility] [address] [facility] [id number] [place] [address] Feb, [facility] [place] [facility] [address] [id number] [place] [address] Feb, [facility] [address] [facility] [id number] [place] [address] Jan, [facility] [address] [facility] [id number] [place] [address] Sep, IMMUNIZATIONS No Known Immunizations SOCIAL HISTORY Never Assessed REASON FOR VISIT bloodwork AGarrett [employer] PLAN OF CARE VITAL SIGNS MEDICATIONS No Known Medications RESULTS No Results PROCEDURES Procedure Date Ordered Result Body Site ASSAY THYROID STIM HORMONE Mar 17, 2017 ASSAY OF FREE THYROXINE Mar 17, 2017 COMPREHEN METABOLIC PANEL Mar 17, 2017 LIPID PANEL Mar 17, 2017 VENIPUNCT, ROUTINE* Mar 17, 2017 COMPLETE CBC W/AUTO DIFF WBC Mar 17, 2017 INSTRUCTIONS MEDICATIONS ADMINISTERED No Known Medications MEDICAL [...]
--- OUTSIDE RECORDS SUMMARY | 2017-12-22 06:52 | XMS REPORT ---
Author Author SALUD WEAVER [facility] Address [address] [place] [address] Care Team Providers Care Process Assistant Name Role Phone SALUD WEAVER Unavailable PROBLEMS Type Condition ICD9-CM Code HWI90-CL Code Onset Dates Condition Status SNOMED Code Problem Other chronic pain G89.29 Active 70705337 Problem Pain in throat R07.0 Active 44226621 Problem Hypertension, essential I10 Active 70025648 Problem Allergic rhinitis, unspecified allergic rhinitis type J30.9 Active 62260876 Problem Cystic thyroid nodule E04.1 Active 723960414 Problem Pure hypercholesterolemia E78.0 Active [id number] ALLERGIES No Known Allergies ENCOUNTERS Encounter Location Date Diagnosis [facility] [address] [id number][place] [id number] Dec, [facility] [address] [id number][place] [id number] November, [facility] [address] [id number][place] [id number] November, Hypertension, essential I10 [facility] [address] [id number][place] [id number] November, Hypertension, essential I10 [facility] [address] [id number], [place] [id number] November, Hypertension, essential I10 and Pain in [facility] R07.0 [facility] [address] [address] [id number][place] [id number] Jun, Dental examination Z01.20 and Dental caries K02.9 [facility] [address] [id number][place] [id number] May, Hypertension, essential I10 [facility] [address] [id number] [place] [id number] Apr, [facility] [address] [id number][place] [id number] Mar, [facility] [address] [id number][place] [id number] Mar, [facility] [address] [id number][place] [id number] Mar, Hypertension, essential I10 [facility] [address] [id number], [place] [address] Mar, Hypertension, essential I10 ; Other chronic pain G89.29 ; Pain in throat R07.0 and Breast cancer screening Z12.[address] [facility] [address] [id number][place] [id number] Feb, Hypertension, essential I10 [facility] [address] [id number], [place] [id number] Jul, Cystic thyroid nodule E04.[address] [facility] [address] [id number], [place] [id number] Feb, Elevated fasting glucose R73.01 [facility] [address] [id number], [place] [id number] Feb, Elevated fasting glucose R73.[address] [facility] [address] [id number], [place] [id number] Feb, Cystic thyroid nodule E04.1 ; Pure hypercholesterolemia E78.0 and Hypertension, essential I10 [facility] [address] [id number][place] [id number] Feb, [facility] [address] [id number][place] [id number] Feb, Cystic thyroid nodule E04.1 [facility] [address] [facility] [id number] [address] Feb, [facility] [address] [id number][place] [id number] Feb, Hypertension, essential I10 and Pharyngeal dysphagia R13.13 [facility] [address] [id number], [place] [id number] Dec, [facility] [address] [id number], [place] [id number] Dec, Pure hypercholesterolemia E78.0 and Hypertension, essential I10 [facility] [address] [id number], [place] [id number] November, [facility] [address] [id number], [place] [id number] November, Hypertension, essential I10 ; Pure hypercholesterolemia E78.0 and Allergic rhinitis, unspecified allergic rhinitis type J30.9 [facility] [address] [id number], [place] [id number] November, [facility] [address] [id number], [place] [id number] November, [facility] [address] [id number], [place] [id number] November, [facility] [address] [id number], [place] [id number] November, 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.31 ; Pap smear for cervical cancer screening V76.2 ; Mammogram abnormal 793.80 and Colon cancer screening V76.51 [facility] [address] [id number], [place] [id number] November, Abnormal mammogram, unspecified 793.80 [facility] [address] [id number] [address] Oct, [facility] [address]00565100[place], [place] [address] Oct, [facility] [address] [id number] [address] Aug, [facility] [address] [id number] [place] [address] Aug, [facility] [address] [id number] [place] [address] Jul, [facility] [place] [facility] [address] [id number] [place] [address] Jul, [facility] [place] [facility] [address] [id number] [place] [address] Jul, [facility] [place] [facility] [address] [id number] [place] [address] Jul, [facility] [place] [facility] [address] [id number] [place] [address] Jul, [facility] [place] [facility] [address] [id number] [place] [address] Jul, [facility] [place] [facility] [address] [id number] [place] [address] Jul, [facility] [place] [facility] [address] [id number] [place] [address] Jul, [facility] [place] [facility] [address] [id number] [place] [address] Jul, [facility] [place] [facility] [address] [facility] [id number] [place] [address] Jul, [facility] [place] [facility] [address] [id number] [place] [address] Jul, [facility] [place] [facility] [address] [id number][place] [address] May, [facility] [address] [id number] [place] [id number] May, [facility] [place] [facility] [address] [facility] [id number] [place] [address] May, [facility] [place] [facility] [address] [facility] [id number] [place] [address] May, [facility] [place] [facility] [address] [id number] [place] [address] Apr, [facility] [place] [facility] [address] [id number] [place] [address] Apr, [facility] [place] [facility] [address] [id number] [place] [address] Jan, [facility] [place] [facility] [address] [id number] [place] [address] Jan, [facility] [place] [facility] [address] [id number] [place] [address] Dec, [facility] [place] [facility] [address] [id number] [place] [address] Dec, [facility] [place] [facility] [address] [id number] [place] [address]- [address] Dec, [facility] [place] [facility] [address] [id number] [place] [address] Dec, [facility] [place] [facility] [address] [id number] [place] [address] Dec, [facility] [place] [facility] [address] [id number] [place] [address] Dec, [facility] [place] [facility] [address] [id number] [place] [address]- [address]694 Oct, [facility] [place] [facility] [address] [id number] [place] [address]68 Oct, [facility] [place] [facility] [address] [id number] [place] [address]180 Oct, [facility] [place] [facility] [address] [id number] [place] [address]- [address] Oct, [facility] [place] [facility] [address] [id number] [place] [address]- [address] Oct, [facility] [place] [facility] [address] [id number] [place] [address]- [address]5 Oct, [facility] [place] [facility] [address] [id number] [place] [address]- [address]37 Oct, [facility] [place] [facility] [address] [id number] [place] [address]- 8786 Oct, [facility] [place] [facility] [address] [id number] [place] [address]- [address]89 Oct, [facility] [place] [facility] [address] [id number] [place] [address]- [address] Oct, [facility] [place] [facility] [address] [id number] [place] [address]- [address]277 Sep, [facility] [place] [facility] [address] [id number] [place] [address]- [address]797 Sep, [facility] [place] [facility] [address] [id number] [place] [address]- [address]648 Jul, [facility] [place] [facility] [address] [id number] [place] [address]- [address] Jul, [facility] [place] [facility] [address] [id number] [place] [address]- 4869 Jul, [facility] [place] [facility] [address] [id number] [place] [address]- 7673 Jul, [facility] [place] [facility] [address] [id number] [place] [address]- 3055 Jul, [facility] [place] [facility] [address] [id number][place] [address]- [address]66 Jun, [facility] [place] [facility] [address] [id number] [place] [address]- [address]450 Jun, [facility] [place] [facility] [address] [id number] [place] [address]- [address]4 May, [facility] [place] [facility] [address] [id number] [place] [address]- 9667 May, [facility] [place] [facility] [address] [id number] [place] [address]- 9370 May, [facility] [place] [facility] [address] [id number] [place] [address]- 3652 May, [facility] [place] [facility] [address] [facility] [id number] [place] [address]- [address] Apr, [facility] [place] [facility] [address] [facility] [id number] [place] [address]- 4398 Apr, [facility] [place] [facility] [address] [facility] [id number] [place] [address]- [address] Feb, [facility] [place] [facility] [address] [id number] [place] [address] Dec, [facility] [place] [facility] [address] [place] [address] November, [facility] [id number] [id number] Aug, [facility] [place] [facility] [id number], [place] [address] May, [facility] [place] [facility] [id number] [place] [address]- [address] May, [facility] [place] [facility] [id number], [place] [address] May, [facility] [place] [facility] [address] [id number], [place] [address] May, [facility] [place] [facility] [address] [id number] [address] Apr, [facility] [place] [facility] [address] [id number] [place] [address]- 2540 Apr, [facility] [place] [facility] [address] [facility] [id number] [place] [address]- 4671 Apr, [facility] [place] [facility] [address] [id number] [place] [address]- 4[address] Apr, [facility] [place] [facility] [address] [id number] [address] Apr, [facility] [address] [id number] [address] Mar, [facility] [id number], [place] [address] Mar, [facility] [id number], [place] [address] Mar, [facility] [id number], [place] [address]- [address] Feb, [facility] [address], [place] [address]163 Feb, [facility] [id number], [place] [address] Jan, [facility] [id number] [address] Sep, IMMUNIZATIONS No Known Immunizations SOCIAL HISTORY Never Assessed REASON FOR VISIT tooth pain PLAN OF CARE Activity Details Follow Up prn Reason:KARIS w/ hygiene VITAL SIGNS Height 62 in 2017-06-23 Blood pressure systolic 128 mmHg 2017-06-23 Blood pressure diastolic 68 mmHg 2017-06-23 MEDICATIONS Medication Instructions Dosage Frequency Start Date End Date Duration Status Metoprolol Succinate ER 25 MG Orally Once a day at bedtime 1 tablet Feb, 30 day(s) Not-Taking Simvastatin 20 mg Orally Once a day 1 tablet in the evening 24h Feb, Not-Taking Xyzal 5 mg Orally Once a day 1 tablet in the evening 24h Mar, Active Singulair 10 mg Orally Once a day 1 tablet in the evening 24h Jul, Not-Taking Lisinopril-Hydrochlorothiazide 20-12.5 MG Orally Once a day take 1 tablet by oral route once daily 24h Aug, Active Diclofenac Potassium 50 mg 1 tablet by Oral route 2 times per day PRN pain Aug, Not-Taking [place] 5-325 MG Orally every 6 hrs 1 tablet as needed 6h 4 days Active Nexium 40 mg Orally Once a day 1 capsule 24h Mar, Active Amoxicillin 500 mg Orally 3 times a day 1 capsule 8h 10 day(s) Active Metoprolol Tartrate 25 MG Orally Once a day 1 tablet with food 24h Not-Taking RESULTS No Results PROCEDURES Procedure Date Ordered Result Body Site LTD ORAL EVALUATION - PROBLEM FOCUS Jun 23, 2017 INTRAORL-PERIAPICAL 1 FILM [id number] Jun 23, 2017 SURG REMOVAL ERUPTED TOOTH Jun 23, 2017 BITEWING - SINGLE FILM Jun 23, 2017 INSTRUCTIONS MEDICATIONS ADMINISTERED No Known Medications [...]
--- OUTSIDE RECORDS SUMMARY | 2017-12-22 06:53 | XMS REPORT | Continuity of Care Document ---
Author Author [facility] Address Unknown Phone Unavailable Allergies Active Description Code Type Severity Reaction Onset Reported/Identified Relationship to Patient Clinical Status Yes No Known Drug Allergies [id number] Drug Allergy Unknown N/A 03/04/2013 Medications There is no data. Problems Date Dx Coded Attending Type Code Diagnosis Diagnosed By 03/16/2011 278.00 OBESITY 03/16/2011 381.10 OTITIS MEDIA CHRONIC SEROUS 03/16/2011 477.0 ALLERGIC RHINITIS - POLLEN 03/16/2011 796.2 Blood Pressure Isolated Elevated 03/16/2011 278.00 OBESITY 03/16/2011 381.10 OTITIS MEDIA CHRONIC SEROUS 03/16/2011 477.0 ALLERGIC RHINITIS - POLLEN 03/16/2011 796.2 Blood Pressure Isolated Elevated 03/16/2011 278.00 OBESITY 03/16/2011 381.10 OTITIS MEDIA CHRONIC SEROUS 03/16/2011 477.0 ALLERGIC RHINITIS - POLLEN 03/16/2011 796.2 Blood Pressure Isolated Elevated 03/16/2011 CRENSHAW DO, CARLTON K 278.00 OBESITY 03/16/2011 CRENSHAW DO, CARLTON K 381.10 OTITIS MEDIA CHRONIC SEROUS 03/16/2011 CRENSHAW DO, CARLTON K 477.0 ALLERGIC RHINITIS - POLLEN 03/16/2011 CRENSHAW DO, CARLTON K 796.2 Blood Pressure Isolated Elevated 03/16/2011 CRENSHAW DO, CARLTON K 278.00 OBESITY 03/16/2011 CRENSHAW DO, CARLTON K 381.10 OTITIS MEDIA CHRONIC SEROUS 03/16/2011 CRENSHAW DO, CARLTON K 477.0 ALLERGIC RHINITIS - POLLEN 03/16/2011 CRENSHAW DO, CARLTON K 796.2 Blood Pressure Isolated Elevated 03/16/2011 ROWENA TRIPATHI APRN 278.00 OBESITY 03/16/2011 ROWENA TRIPATHI APRN 381.10 OTITIS MEDIA CHRONIC SEROUS 03/16/2011 ROWENA TRIPATHI APRN 477.0 ALLERGIC RHINITIS - POLLEN 03/16/2011 ROWENA TRIPATHI APRN 796.2 Blood Pressure Isolated Elevated 03/16/2011 CRENSHAW DO, CARLTON K 278.00 OBESITY 03/16/2011 CRENSHAW DO, CARLTON K 381.10 OTITIS MEDIA CHRONIC SEROUS 03/16/2011 CRENSHAW DO, CARLTON K 477.0 ALLERGIC RHINITIS - POLLEN 03/16/2011 CRENSHAW DO, CARLTON K 796.2 Blood Pressure Isolated Elevated 03/16/2011 EATON CATALYST OPERATOR CHIEF, PENNY L 278.00 OBESITY 03/16/2011 EATON CATALYST OPERATOR CHIEF, PENNY L 381.10 OTITIS MEDIA CHRONIC SEROUS 03/16/2011 EATON CATALYST OPERATOR CHIEF, PENNY L 477.0 ALLERGIC RHINITIS - POLLEN 03/16/2011 EATON CATALYST OPERATOR CHIEF, PENNY L 796.2 Blood Pressure Isolated Elevated 03/16/2011 CRENSHAW DO, CARLTON K 278.00 OBESITY 03/16/2011 CRENSHAW DO, CARLTON K 381.10 OTITIS MEDIA CHRONIC SEROUS 03/16/2011 CRENSHAW DO, CARLTON K 477.0 ALLERGIC RHINITIS - POLLEN 03/16/2011 CRENSHAW DO, CARLTON K 796.2 Blood Pressure Isolated Elevated 03/16/2011 BETTE CATALYST OPERATOR CHIEF, ARTURO A 278.00 OBESITY 03/16/2011 BETTE CATALYST OPERATOR CHIEF, ARTURO A 381.10 OTITIS MEDIA CHRONIC SEROUS 03/16/2011 BETTE CATALYST OPERATOR CHIEF, ARTURO A 477.0 ALLERGIC RHINITIS - POLLEN 03/16/2011 BETTE CATALYST OPERATOR CHIEF, ARTURO A 796.2 Blood Pressure Isolated Elevated 03/16/2011 BETTE CATALYST OPERATOR CHIEF, ARTURO A 278.00 OBESITY 03/16/2011 BETTE CATALYST OPERATOR CHIEF, ARTURO A 381.10 OTITIS MEDIA CHRONIC SEROUS 03/16/2011 BETTE CATALYST OPERATOR CHIEF, ARTURO A 477.0 ALLERGIC RHINITIS - POLLEN 03/16/2011 BETTE CATALYST OPERATOR CHIEF, ARTURO A 796.2 Blood Pressure Isolated Elevated 03/16/2011 278.00 OBESITY 03/16/2011 381.10 OTITIS MEDIA CHRONIC SEROUS 03/16/2011 477.0 ALLERGIC RHINITIS - POLLEN 03/16/2011 796.2 Blood Pressure Isolated Elevated 03/16/2011 CRENSHAW DO, CARLTON K 278.00 OBESITY 03/16/2011 CRENSHAW DO, CARLTON K 381.10 OTITIS MEDIA CHRONIC SEROUS 03/16/2011 CRENSHAW DO, CARLTON K 477.0 ALLERGIC RHINITIS - POLLEN 03/16/2011 CRENSHAW DO, CARLTON K 796.2 Blood Pressure Isolated Elevated 03/16/2011 EATSHANELLE FINNEGAN, PENNY L 278.00 OBESITY 03/16/2011 EATSHANELLE FINNEGAN, PENNY L 381.10 OTITIS MEDIA CHRONIC SEROUS 03/16/2011 ANDRIA FINNEGAN, PENNY L 477.0 ALLERGIC RHINITIS - POLLEN 03/16/2011 ROMEO AYERS APRNSON L 796.2 Blood Pressure Isolated Elevated 03/16/2011 EATROMEO TIMMONS APRNSON L 278.00 OBESITY 03/16/2011 EATSHANELLE FINNEGAN, PENNY L 381.10 OTITIS MEDIA CHRONIC SEROUS 03/16/2011 EATSHANELLE FINNEGAN, EPNNY L 477.0 ALLERGIC RHINITIS - POLLEN 03/16/2011 ANDRIA FINNEGAN, PENNY L 796.2 Blood Pressure Isolated Elevated 03/30/2011 277.7 DYSMETABOLIC SYNDROME X 03/30/2011 401.9 ESSENTIAL HYPERTENSION 03/30/2011 277.7 DYSMETABOLIC SYNDROME X 03/30/2011 401.9 ESSENTIAL HYPERTENSION 03/30/2011 277.7 DYSMETABOLIC SYNDROME X 03/30/2011 401.9 ESSENTIAL HYPERTENSION 03/30/2011 CRENSHAW DO, CARLTON K 277.7 DYSMETABOLIC SYNDROME X 03/30/2011 CRENSHAW DO, CARLTON K 401.9 ESSENTIAL HYPERTENSION 03/30/2011 CRENSHAW DO, CARLTON K 277.7 DYSMETABOLIC SYNDROME X 03/30/2011 CRENSHAW DO, CARLTON K 401.9 ESSENTIAL HYPERTENSION 03/30/2011 TRIPATHI ROWENA FINNEGAN 277.7 DYSMETABOLIC SYNDROME X 03/30/2011 ROWENA TRIPATHI APRN 401.9 ESSENTIAL HYPERTENSION 03/30/2011 CRENSHAW DO, CARLTON K 277.7 DYSMETABOLIC SYNDROME X 03/30/2011 CRENSHAW DO, CARLTON K 401.9 ESSENTIAL HYPERTENSION 03/30/2011 EATON KAIN, PENNY L 277.7 DYSMETABOLIC SYNDROME X 03/30/2011 EATON CATALYST OPERATOR CHIEF, PENNY L 401.9 ESSENTIAL HYPERTENSION 03/30/2011 CRENSHAW DO, CARLTON K 277.7 DYSMETABOLIC SYNDROME X 03/30/2011 CRENSHAW DO, CARLTON K 401.9 ESSENTIAL HYPERTENSION 03/30/2011 BETTEARTURO Hay APRN 277.7 DYSMETABOLIC SYNDROME X 03/30/2011 BETTE FINNEGAN, ARTURO A 401.9 ESSENTIAL HYPERTENSION 03/30/2011 BETTE FINNEGAN, ARTURO A 277.7 DYSMETABOLIC SYNDROME X 03/30/2011 BETTE FINNEGAN, ARTURO A 401.9 ESSENTIAL HYPERTENSION 03/30/2011 277.7 DYSMETABOLIC SYNDROME X 03/30/2011 401.9 ESSENTIAL HYPERTENSION 03/30/2011 CRENSHAW DO, CARLTON K 277.7 DYSMETABOLIC SYNDROME X 03/30/2011 CRENSHAW DO, CARLTON K 401.9 ESSENTIAL HYPERTENSION 03/30/2011 EATSHANELLE FINNEGAN, PENNY L 277.7 DYSMETABOLIC SYNDROME X 03/30/2011 EATON CATALYST OPERATOR CHIEF, PENNY L 401.9 ESSENTIAL HYPERTENSION 03/30/2011 EATON CATALYST OPERATOR CHIEF, PENNY L 277.7 DYSMETABOLIC SYNDROME X 03/30/2011 EATON CATALYST OPERATOR CHIEF, PENNY L 401.9 ESSENTIAL HYPERTENSION 02/23/2012 784.1 throat pain 02/23/2012 784.1 throat pain 02/23/2012 784.1 throat pain 02/23/2012 CRENSHAW DO, CARLTON K 784.1 throat pain 02/23/2012 CRENSHAW DO, CARLTON K 784.1 throat pain 02/23/2012 ROWENA TRIPATHI APRN 784.1 throat pain 02/23/2012 CRENSHAW DO, CARLTON K 784.1 throat pain 02/23/2012 EATON CATALYST OPERATOR CHIEF, PENNY L 784.1 throat pain 02/23/2012 CRENSHAW DO, CARLTON K 784.1 throat pain 02/23/2012 BETTE FINNEGAN, ARTURO A 784.1 throat pain 02/23/2012 BETTE REDN, ARTURO A 784.1 throat pain 02/23/2012 784.1 throat pain 02/23/2012 CRENSHAW DO, CARLTON K 784.1 throat pain 02/23/2012 EATON CATALYST OPERATOR CHIEF, PENNY L 784.1 throat pain 02/23/2012 EATON CATALYST OPERATOR CHIEF, PENNY L 784.1 throat pain 03/28/2012 474.00 CHRONIC TONSILLITIS 03/28/2012 477.9 ALLERGIC RHINITIS CAUSE UNSPECIFIED 03/28/2012 474.00 CHRONIC TONSILLITIS 03/28/2012 477.9 ALLERGIC RHINITIS CAUSE UNSPECIFIED 03/28/2012 474.00 CHRONIC TONSILLITIS 03/28/2012 477.9 ALLERGIC RHINITIS CAUSE UNSPECIFIED 03/28/2012 CRENSHAW DO, CARLTON K 474.00 CHRONIC TONSILLITIS 03/28/2012 CRENSHAW DO, CARLTON K 477.9 ALLERGIC RHINITIS CAUSE UNSPECIFIED 03/28/2012 CRENSHAW DO, CARLTON K 474.00 CHRONIC TONSILLITIS 03/28/2012 CRENSHAW DO, CARLTON K 477.9 ALLERGIC RHINITIS CAUSE UNSPECIFIED 03/28/2012 TRIPATHI CATALYST OPERATOR CHIEFROWENA 474.00 CHRONIC TONSILLITIS 03/28/2012 TRIPATHI CATALYST OPERATOR CHIEFROWENA 477.9 ALLERGIC RHINITIS 03/28/2012 CRENSHAW DO, CARLTON K 474.00 CHRONIC TONSILLITIS 03/28/2012 CRENSHAW DO, CARLTON K 477.9 ALLERGIC RHINITIS 03/28/2012 EATON CATALYST OPERATOR CHIEFROMEOPENNY L 474.00 CHRONIC TONSILLITIS 03/28/2012 EATON CATALYST OPERATOR CHIEFPENNY L 477.9 ALLERGIC RHINITIS 03/28/2012 CRENSHAW DO, CARLTON K 474.00 CHRONIC TONSILLITIS 03/28/2012 CRENSHAW DO, CARLTON K 477.9 ALLERGIC RHINITIS 03/28/2012 BETTE CATALYST OPERATOR CHIEF, ARTURO A 474.00 CHRONIC TONSILLITIS 03/28/2012 BETTE CATALYST OPERATOR CHIEF, ARTURO A 477.9 ALLERGIC RHINITIS 03/28/2012 BETTE CATALYST OPERATOR CHIEF, ARTURO A 474.00 CHRONIC TONSILLITIS 03/28/2012 BETTE CATALYST OPERATOR CHIEF, ARTURO A 477.9 ALLERGIC RHINITIS 03/28/2012 474.00 CHRONIC TONSILLITIS 03/28/2012 477.9 ALLERGIC RHINITIS CAUSE UNSPECIFIED 03/28/2012 CRENSHAW DO, CARLTON K 474.00 CHRONIC TONSILLITIS 03/28/2012 CRENSHAW DO CARLTON K 477.9 ALLERGIC RHINITIS 03/28/2012 EATON CATALYST OPERATOR CHIEF, PENNY L 474.00 CHRONIC TONSILLITIS 03/28/2012 EATON CATALYST OPERATOR CHIEFROMEOPENNY L 477.9 ALLERGIC RHINITIS 03/28/2012 EATON CATALYST OPERATOR CHIEF, PENNY L 474.00 CHRONIC TONSILLITIS 03/28/2012 EATON CATALYST OPERATOR CHIEFPENNY L 477.9 ALLERGIC RHINITIS 05/03/2012 626.8 DUB 05/03/2012 626.8 DUB 05/03/2012 626.8 DUB 05/03/2012 CRENSHAW DO, CARLTON K 626.8 DUB 05/03/2012 CRENSHAW DO, CARLTON K 626.8 DUB 05/03/2012 ROWENA TRIPATHI APRN 626.8 DUB 05/03/2012 CRENSHAW DO, CARLTON K 626.8 DUB 05/03/2012 EATON CATALYST OPERATOR CHIEF, PENNY L 626.8 DUB 05/03/2012 CRENSHAW DO, CARLTON K 626.8 DUB 05/03/2012 BETTE CATALYST OPERATOR CHIEF, ARTURO A 626.8 DUB 05/03/2012 BETTE CATALYST OPERATOR CHIEF, ARTURO A 626.8 DUB 05/03/2012 626.8 DUB 05/03/2012 CRENSHAW DO, CARLTON K 626.8 DUB 05/03/2012 EATON CATALYST OPERATOR CHIEF, PENNY L 626.8 DUB 05/03/2012 EATON CATALYST OPERATOR CHIEF, PENNY L 626.8 DUB 12/17/2012 530.81 GERD 12/17/2012 CRENSHAW DO, CARLTON K 530.81 GERD 12/17/2012 CRENSHAW DO, CARLTON K 530.81 GERD 12/17/2012 ROWENA TRIPATHI APRN 530.81 ESOPHAGEAL REFLUX 12/17/2012 CRENSHAW DO, CARLTON K 530.81 ESOPHAGEAL REFLUX 12/17/2012 EATON CATALYST OPERATOR CHIEF, PENNY L 530.81 ESOPHAGEAL REFLUX 12/17/2012 CRENSHAW DO, CARLTON K 530.81 ESOPHAGEAL REFLUX 12/17/2012 BETTE CATALYST OPERATOR CHIEF, ARTURO A 530.81 ESOPHAGEAL REFLUX 12/17/2012 BETTE CATALYST OPERATOR CHIEF, ARTURO A 530.81 ESOPHAGEAL REFLUX 12/17/2012 CRENSHAW DO, CARLTON K 530.81 ESOPHAGEAL REFLUX 12/17/2012 EATON CATALYST OPERATOR CHIEF, PENNY L 530.81 ESOPHAGEAL REFLUX 12/17/2012 EATON CATALYST OPERATOR CHIEF, PENNY L 530.81 ESOPHAGEAL REFLUX 03/04/2013 FRANCES EUGENE, LUCY Cunha Ot 530.11 REFLUX ESOPHAGITIS 03/04/2013 FRANCES EUGENE, LUCY Cunha Ot 532.90 DUODENAL ULCER NOS 03/04/2013 FRANCES EUGENE, LUCY Cunha Ot 535.50 UNSP GASTRITIS GASTRODUODENITIS W/O ME 04/16/2013 CRENSHAW DO CARLTON K 461.9 SINUSITIS ACUTE 04/16/2013 CRENSHAW DO CARLTON K 473.0 CHRONIC MAXILLARY SINUSITIS 04/16/2013 CRENSHAW DO, CARLTON K 461.9 SINUSITIS ACUTE 04/16/2013 CRENSHAW DO, CARLTON K 473.0 CHRONIC MAXILLARY SINUSITIS 04/16/2013 TRIPATHI CATALYST OPERATOR CHIEFROWENA J 461.9 SINUSITIS ACUTE 04/16/2013 TRIPATHI CATALYST OPERATOR CHIEF, ROWENA J 473.0 CHRONIC MAXILLARY SINUSITIS 04/16/2013 CRENSHAW DO, CARLTON K 461.9 SINUSITIS ACUTE 04/16/2013 CRENSHAW DO, CARLTON K 473.0 CHRONIC MAXILLARY SINUSITIS 04/16/2013 EATON CATALYST OPERATOR CHIEF, PENNY L 461.9 SINUSITIS ACUTE 04/16/2013 EATON CATALYST OPERATOR CHIEF, PENNY L 473.0 CHRONIC MAXILLARY SINUSITIS 04/16/2013 CRENSHAW DO, CARLTON K 461.9 SINUSITIS ACUTE 04/16/2013 CRENSHAW DO, CARLTON K 473.0 CHRONIC MAXILLARY SINUSITIS 04/16/2013 BETTE CATALYST OPERATOR CHIEF, ARTURO A 461.9 SINUSITIS ACUTE 04/16/2013 BETTE CATALYST OPERATOR CHIEF, ARTURO A 473.0 CHRONIC MAXILLARY SINUSITIS 04/16/2013 BETTE CATALYST OPERATOR CHIEF, ARTURO A 461.9 SINUSITIS ACUTE 04/16/2013 BETTE CATALYST OPERATOR CHIEF, ARTURO A 473.0 CHRONIC MAXILLARY SINUSITIS 04/16/2013 CRENSHAW DO, CARLTON K 461.9 SINUSITIS ACUTE 04/16/2013 CRENSHAW DO, CARLTON K 473.0 CHRONIC MAXILLARY SINUSITIS 04/16/2013 EATON CATALYST OPERATOR CHIEF, PENNY L 461.9 SINUSITIS ACUTE 04/16/2013 EATON CATALYST OPERATOR CHIEF, PENNY L 473.0 CHRONIC MAXILLARY SINUSITIS 04/16/2013 EATON CATALYST OPERATOR CHIEF, PENNY L 461.9 SINUSITIS ACUTE 04/16/2013 EATON CATALYST OPERATOR CHIEF, PENNY L 473.0 CHRONIC MAXILLARY SINUSITIS 05/22/2013 CRENSHAW DO, CARLTON K 401.1 HYPERTENSION, BENIGN ESSENTIAL 05/22/2013 CRENSHAW DO, CARLTON K 709.9 UNSPECIFIED DISORDER OF SKIN AND SUBCUTANEOUS TISSUE 05/22/2013 TRIPATHI CATALYST OPERATOR CHIEFROWENA 401.1 HYPERTENSION, BENIGN ESSENTIAL 05/22/2013 TRIPATHI CATALYST OPERATOR CHIEFROWENA 709.9 UNSPECIFIED DISORDER OF SKIN AND SUBCUTANEOUS TISSUE 05/22/2013 CRENSHAW DO, CARLTON K 401.1 HYPERTENSION, BENIGN ESSENTIAL 05/22/2013 CRENSHAW DO, CARLTON K 709.9 UNSPECIFIED DISORDER OF SKIN AND SUBCUTANEOUS TISSUE 05/22/2013 EATON CATALYST OPERATOR CHIEF, PENNY L 401.1 HYPERTENSION, BENIGN ESSENTIAL 05/22/2013 EATON CATALYST OPERATOR CHIEF, PENNY L 709.9 UNSPECIFIED DISORDER OF SKIN AND SUBCUTANEOUS TISSUE 05/22/2013 CRENSHAW DO, CARLTON K 401.1 HYPERTENSION, BENIGN ESSENTIAL 05/22/2013 CRENSHAW DO, CARLTON K 709.9 UNSPECIFIED DISORDER OF SKIN AND SUBCUTANEOUS TISSUE 05/22/2013 BETTE CATALYST OPERATOR CHIEF, ARTURO A 401.1 HYPERTENSION, BENIGN ESSENTIAL 05/22/2013 BETTE CATALYST OPERATOR CHIEF, ARTURO A 709.9 UNSPECIFIED DISORDER OF SKIN AND SUBCUTANEOUS TISSUE 05/22/2013 BETTE CATALYST OPERATOR CHIEF, ARTURO A 401.1 HYPERTENSION, BENIGN ESSENTIAL 05/22/2013 BETTE CATALYST OPERATOR CHIEF, ARTURO A 709.9 UNSPECIFIED DISORDER OF SKIN AND SUBCUTANEOUS TISSUE 05/22/2013 CRENSHAW DO, CARLTON K 401.1 HYPERTENSION, BENIGN ESSENTIAL 05/22/2013 CRENSHAW DO, CARLTON K 709.9 UNSPECIFIED DISORDER OF SKIN AND SUBCUTANEOUS TISSUE 05/22/2013 EATON CATALYST OPERATOR CHIEF, PENNY L 401.1 HYPERTENSION, BENIGN ESSENTIAL 05/22/2013 EATON CATALYST OPERATOR CHIEF, PENNY L 709.9 UNSPECIFIED DISORDER OF SKIN AND SUBCUTANEOUS TISSUE 05/22/2013 EATON CATALYST OPERATOR CHIEF, PENNY L 401.1 HYPERTENSION, BENIGN ESSENTIAL 05/22/2013 EATON CATALYST OPERATOR CHIEF, PENNY L 709.9 UNSPECIFIED DISORDER OF SKIN AND SUBCUTANEOUS TISSUE 07/04/2013 CRENSHAW DO, CARLTON K 272.4 HYPERLIPIDEMIA 07/04/2013 EATON CATALYST OPERATOR CHIEF, PENNY L 272.4 HYPERLIPIDEMIA 07/04/2013 CRENSHAW DO, CARLTON K 272.4 HYPERLIPIDEMIA 07/04/2013 BETTE CATALYST OPERATOR CHIEF, ARTURO A 272.4 HYPERLIPIDEMIA 07/04/2013 BETTE CATALYST OPERATOR CHIEF, ARTURO A 272.4 HYPERLIPIDEMIA 07/04/2013 CRENSHAW DO, CARLTON K 272.4 HYPERLIPIDEMIA 07/04/2013 EATON CATALYST OPERATOR CHIEF, PENNY L 272.4 HYPERLIPIDEMIA 07/04/2013 EATON CATALYST OPERATOR CHIEF, PENNY L 272.4 HYPERLIPIDEMIA 08/08/2013 CRENSHAW DO, CARLTON K 472.1 SORE THROAT CHRONIC 08/08/2013 BETTE CATALYST OPERATOR CHIEF, ARTURO A 472.1 SORE THROAT CHRONIC 08/08/2013 BETTE CATALYST OPERATOR CHIEF, ARTURO A 472.1 SORE THROAT CHRONIC 08/08/2013 CRENSHAW DO, CARLTON K 472.1 SORE THROAT CHRONIC 08/08/2013 EATON CATALYST OPERATOR CHIEF, PENNY L 472.1 SORE THROAT CHRONIC 08/08/2013 EATON CATALYST OPERATOR CHIEF, PENNY L 472.1 SORE THROAT CHRONIC 10/02/2013 BETTE KAIN ARTURO A V65.49 OTHER SPECIFIED COUNSELING 10/02/2013 BETTE CATALYST OPERATOR CHIEF, ARTURO A V72.31 GRADE CHECKER EXAM, ROUTINE 10/02/2013 BETTE CATALYST OPERATOR CHIEF, ARTURO A V76.10 BREAST CANCER SCREENING 10/02/2013 BETTE CATALYST OPERATOR CHIEF ARTURO A V76.51 COLON CANCER SCREENING 10/02/2013 BETTE CATALYST OPERATOR CHIEF ARTURO A V65.49 OTHER SPECIFIED COUNSELING 10/02/2013 BETTE CATALYST OPERATOR CHIEF, ARTURO A V72.31 GRADE CHECKER EXAM, ROUTINE 10/02/2013 BETTE CATALYST OPERATOR CHIEF ARTURO A V76.10 BREAST CANCER SCREENING 10/02/2013 BETTE CATALYST OPERATOR CHIEF ARTURO A V76.51 COLON CANCER SCREENING 10/02/2013 CRENSHAW DO, CARLTON K V65.49 OTHER SPECIFIED COUNSELING 10/02/2013 CRENSHAW DO, CARLTON K V72.31 GRADE CHECKER EXAM, ROUTINE 10/02/2013 CRENSHAW DO, CARLTON K V76.10 BREAST CANCER SCREENING 10/02/2013 CRENSHAW DO, CARLTON K V76.51 COLON CANCER SCREENING 10/02/2013 EATON CATALYST OPERATOR CHIEF PENNY L V65.49 OTHER SPECIFIED COUNSELING 10/02/2013 EATON CATALYST OPERATOR CHIEF, PENNY L V72.31 GRADE CHECKER EXAM, ROUTINE 10/02/2013 EATON CATALYST OPERATOR CHIEF, PENNY L V76.10 BREAST CANCER SCREENING 10/02/2013 EATON CATALYST OPERATOR CHIEF, PENNY L V76.51 COLON CANCER SCREENING 10/02/2013 EATON CATALYST OPERATOR CHIEF, PENNY L V65.49 OTHER SPECIFIED COUNSELING 10/02/2013 EATON CATALYST OPERATOR CHIEF, PENNY L V72.31 GRADE CHECKER EXAM, ROUTINE 10/02/2013 EATON CATALYST OPERATOR CHIEF, PENNY L V76.10 BREAST CANCER SCREENING 10/02/2013 EATON CATALYST OPERATOR CHIEF, PENNY L V76.51 COLON CANCER SCREENING 05/05/2014 BETTEARTURO Hay APRN A 793.80 ABNORMAL MAMMOGRAM 05/05/2014 CARLTON CRENSHAW DO 793.80 ABNORMAL MAMMOGRAM 05/05/2014 EATON PENNY FINNEGAN L 793.80 ABNORMAL MAMMOGRAM 05/05/2014 EATON KAIN, PENNY L 793.80 ABNORMAL MAMMOGRAM 05/29/2014 ARTURO AMOS A CATALYST OPERATOR CHIEF Ot 793.80 06/20/2014 MICKY EUGENE, JASIEL P Ot 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 06/20/2014 MICKY EUGENE, JASIEL P Ot 473.0 CHR MAXILLARY SINUSITIS 06/20/2014 MICKY EUGENE, JASIEL P Ot 473.2 CHR ETHMOIDAL SINUSITIS 06/20/2014 MICKY EUGENE, JASIEL P Ot 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 07/09/2014 MICKY EUGENE, JASIEL P Ot 470 07/09/2014 MICKY EUGENE, JASIEL P Ot 473.9 07/09/2014 MICKY EUGENE, JASIEL P Ot 478.0 07/09/2014 JASIEL LAU MD P Ot V72.63 07/09/2014 MICKY EUGENE, JASIEL P Ot V72.83 07/09/2014 MICKY EUGENE, JASIEL P Ot V74.8 08/21/2014 PENNY AYERS APRN L 465.9 UPPER RESPIRATORY INFECTION 08/21/2014 PENNY AYERS APRN L 733.6 TIETZE'S DISEASE 11/05/2014 ARTURO AMOS A CATALYST OPERATOR CHIEF Ot 793.80 11/24/2014 PENNY AYERS DATA REPORT ANALYST Ot 793.80 12/06/2014 PENNY AYERS DATA REPORT ANALYST Ot 733.6 12/23/2014 PENNY AYERS DATA REPORT ANALYST Ot 793.80 03/03/2015 JASIEL LAU MD P Ot 787.20 03/03/2015 JASIEL LAU MD P Ot 473.0 03/03/2015 ARTURO AMOS A CATALYST OPERATOR CHIEF Ot 723.1 03/03/2015 ARTURO AMOS A CATALYST OPERATOR CHIEF Ot V65.49 03/03/2015 ARTURO AMOS A CATALYST OPERATOR CHIEF Ot V76.12 03/03/2015 ARTURO AMOS A CATALYST OPERATOR CHIEF Ot V76.51 03/03/2015 ARTURO AMSO A CATALYST OPERATOR CHIEF Ot 610.0 03/03/2015 BETTEARTURO BRAGG CATALYST OPERATOR CHIEF Ot 611.89 03/03/2015 ARTURO AMOS CATALYST OPERATOR CHIEF Ot V76.12 03/03/2015 ARTURO AMOS CATALYST OPERATOR CHIEF Ot 793.80 03/03/2015 MICKY EUGENE, JASIEL P Ot 470 03/03/2015 MICKY EUGENE, JASIEL P Ot 473.9 03/03/2015 MICKY EUGENE, JASIEL P Ot 478.0 03/03/2015 MICKY EUGENE, JASIEL P Ot V72.63 03/03/2015 MICKY EUGENE, JASIEL P Ot V72.83 03/03/2015 MICKY EUGENE, JASIEL P Ot V74.8 03/03/2015 PENNY AYERS L DATA REPORT ANALYST Ot 733.6 03/03/2015 PENNY AYERS DATA REPORT ANALYST Ot 793.80 03/03/2015 MICKY EUGENE, JASIEL P Ot 470 03/03/2015 MICKY EUGENE, JASIEL P Ot 473.9 03/03/2015 MICKY EUGENE, JASIEL P Ot 478.0 03/03/2015 MICKY EUGENE, JASIEL P Ot V72.63 03/03/2015 MICKY EUGENE, JASIEL P Ot V72.83 03/03/2015 MICKY EUGENE, JASIEL P Ot V74.8 04/06/2015 MICKY EUGENE, JASIEL P Ot 470 04/06/2015 MICKY EUGENE, JASIEL P Ot 473.9 04/06/2015 MICKY EUGENE, JASIEL P Ot 478.0 04/06/2015 MICKY EUGENE, JASIEL P Ot V72.63 04/06/2015 MICKY EUGENE, JASIEL P Ot V72.83 04/06/2015 MICKY EUGENE, JASIEL P Ot V74.8 04/06/2015 MICKY EUGENE, JASIEL P Ot 470 04/06/2015 MICKY EUGENE, JASIEL P Ot 473.9 04/06/2015 MICKY EUGENE, JASIEL P Ot 478.0 04/06/2015 MICKY EUGENE, JASIEL P Ot V72.63 04/06/2015 MICKY EUGENE, JASIEL P Ot V72.83 04/06/2015 MICKY EUGENE, JASIEL P Ot V74.8 04/06/2015 PENNY AYERS L DATA REPORT ANALYST Ot 733.6 04/06/2015 PENNY AYERS L DATA REPORT ANALYST Ot 733.6 04/28/2015 MICKY EUGENE, JASIEL P Ot 470 04/28/2015 MICKY EUGENE, JASIEL P Ot 473.9 04/28/2015 MICKY EUGENE, JASIEL P Ot 478.0 04/28/2015 MICKY EUGENE, JASIEL Quiroz Ot J32.9 04/28/2015 MICKY EUGENE, JASIEL Quiroz Ot J34.2 04/28/2015 MICKY EUGENE, JASIEL Quiroz Ot J34.3 04/28/2015 MICKY EUGENE, JASIEL P Ot V72.63 04/28/2015 MICKY EUGENE, JASIEL P Ot V72.83 04/28/2015 MICKY EUGENE, JASIEL Quiroz Ot V74.8 04/28/2015 MICKY EUGENE, JASIEL P Ot Z01.812 04/28/2015 MICKY EUGENE, JASIEL P Ot Z01.818 04/28/2015 ANDRIA PENNY L DATA REPORT ANALYST Ot 733.6 04/28/2015 PENNY AYERS DATA REPORT ANALYST Ot M94.0 11/23/2017 MICKY EUGENE, JASIEL Quiroz Ot 787.20 DYSPHAGIA, UNSPECIFIED 11/23/2017 MICKY EUGENE, JASIEL Quiroz Ot 473.0 CHR MAXILLARY SINUSITIS 11/23/2017 ARTURO AMOS CATALYST OPERATOR CHIEF Ot 723.1 CERVICALGIA 11/23/2017 ARTURO AMOS CATALYST OPERATOR CHIEF Ot V65.49 OTHER SPECIFIED COUNSELING 11/23/2017 ARTURO AMOS CATALYST OPERATOR CHIEF Ot V76.12 OTH SCREEN MAMMO-MALIGN NEOPLASM OF YOEL 11/23/2017 ARTURO AMOS CATALYST OPERATOR CHIEF Ot V76.51 SCREEN MAL NEOP-COLON 11/23/2017 ARTURO AMOS CATALYST OPERATOR CHIEF Ot 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 11/23/2017 ARTURO AMOS CATALYST OPERATOR CHIEF Ot 611.89 OTHER SPECIFIED DISORDERS OF BREAST 11/23/2017 ARTURO AMOS CATALYST OPERATOR CHIEF Ot V76.12 OTH SCREEN MAMMO-MALIGN NEOPLASM OF YOEL 11/23/2017 ARTURO AMOS CATALYST OPERATOR CHIEF Ot 793.80 UNSPEC ABNORMAL MAMMOGRAM 11/23/2017 MICKY EUGENE, JASIEL P Ot 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 11/23/2017 MICKY EUGENE, JASIEL Quiroz Ot 473.9 CHRONIC SINUSITIS NOS 11/23/2017 MICKY EUGENE, JASIEL Quiroz Ot 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 11/23/2017 MICKY EUGENE, JASIEL Quiroz Ot J32.9 CHRONIC SINUSITIS, UNSPECIFIED 11/23/2017 JASIEL LAU MD Ot 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 11/23/2017 JASIEL LAU MD Ot J34.3 HYPERTROPHY OF NASAL TURBINATES 11/23/2017 JASIEL LAU MD Ot V72.63 PRE-PROCEDURAL LABORATORY EXAMINATION 11/23/2017 JASIEL LAU MD Ot V72.83 EXAM PRE-OPERATIVE NEC 11/23/2017 JASIEL LAU MD Ot V74.8 SCREEN-BACTERIAL DIS NEC 11/23/2017 JASIEL LAU MD Ot Z01.812 ENCOUNTER FOR PREPROCEDURAL LABORATORY E 11/23/2017 JASIEL LAU MD Ot Z01.818 ENCOUNTER FOR OTHER PREPROCEDURAL EXAMIN 11/23/2017 PENNY AYERS DATA REPORT ANALYST Ot 733.6 TIETZE'S DISEASE 11/23/2017 PENNY AYERS DATA REPORT ANALYST Ot M94.0 CHONDROCOSTAL JUNCTION SYNDROME [TIETZE] 11/23/2017 PENNY AYERS DATA REPORT ANALYST Ot 793.80 UNSPEC ABNORMAL MAMMOGRAM 12/01/2017 JASIEL LAU MD Ot 787.20 DYSPHAGIA, UNSPECIFIED 12/01/2017 JASIEL LAU MD Ot 473.0 CHR MAXILLARY SINUSITIS 12/01/2017 ARTURO AMOS CATALYST OPERATOR CHIEF Ot 723.1 CERVICALGIA 12/01/2017 ARTURO AMOS CATALYST OPERATOR CHIEF Ot V65.49 OTHER SPECIFIED COUNSELING 12/01/2017 ARTURO AMOS CATALYST OPERATOR CHIEF Ot V76.12 OTH SCREEN MAMMO-MALIGN NEOPLASM OF YOEL 12/01/2017 ARTURO AMOS CATALYST OPERATOR CHIEF Ot V76.51 SCREEN MAL NEOP-COLON 12/01/2017 ARTURO AMOS CATALYST OPERATOR CHIEF Ot 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 12/01/2017 ARTURO AMOS CATALYST OPERATOR CHIEF Ot 611.89 OTHER SPECIFIED DISORDERS OF BREAST 12/01/2017 ARTURO AMOS CATALYST OPERATOR CHIEF Ot V76.12 OTH SCREEN MAMMO-MALIGN NEOPLASM OF YOEL 12/01/2017 ARTURO AMOS CATALYST OPERATOR CHIEF Ot 793.80 UNSPEC ABNORMAL MAMMOGRAM 12/01/2017 JASIEL LAU MD Ot 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 12/01/2017 JASIEL LAU MD Ot 473.9 CHRONIC SINUSITIS NOS 12/01/2017 JASIEL LAU MD Ot 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 12/01/2017 JASIEL LAU MD Ot J32.9 CHRONIC SINUSITIS, UNSPECIFIED 12/01/2017 JASIEL LAU MD Ot 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 12/01/2017 JASIEL LAU MD Ot J34.3 HYPERTROPHY OF NASAL TURBINATES 12/01/2017 JASIEL LAU MD Ot V72.63 PRE-PROCEDURAL LABORATORY EXAMINATION 12/01/2017 JASIEL LAU MD Ot V72.83 EXAM PRE-OPERATIVE NEC 12/01/2017 JASIEL LAU MD Ot V74.8 SCREEN-BACTERIAL DIS NEC 12/01/2017 JASIEL LAU MD Ot Z01.812 ENCOUNTER FOR PREPROCEDURAL LABORATORY E 12/01/2017 JASIEL LAU MD Ot Z01.818 ENCOUNTER FOR OTHER PREPROCEDURAL EXAMIN 12/01/2017 PENNY AYERS DATA REPORT ANALYST Ot 733.6 TIETZE'S DISEASE 12/01/2017 PENNY AYERS DATA REPORT ANALYST Ot M94.0 CHONDROCOSTAL JUNCTION SYNDROME [TIETZE] 12/01/2017 PENNY AYERS DATA REPORT ANALYST Ot 793.80 UNSPEC ABNORMAL MAMMOGRAM 12/04/2017 PENNY AYERS DATA REPORT ANALYST Ot H57.10 OCULAR PAIN, UNSPECIFIED EYE 12/04/2017 PENNY AYERS DATA REPORT ANALYST Ot H92.09 OTALGIA, UNSPECIFIED EAR 12/04/2017 PENNY AYERS DATA REPORT ANALYST Ot R06.00 DYSPNEA, UNSPECIFIED 12/04/2017 ANDRIA PENNY L DATA REPORT ANALYST Ot R07.0 PAIN IN THROAT 12/08/2017 PENNY AYERS DATA REPORT ANALYST Ot J32.0 CHRONIC MAXILLARY SINUSITIS 12/08/2017 PENNY AYERS DATA REPORT ANALYST Ot R07.0 PAIN IN THROAT 12/14/2017 JASIEL LAU MD Ot 787.20 DYSPHAGIA, UNSPECIFIED 12/14/2017 JASIEL LAU MD Ot 473.0 CHR MAXILLARY SINUSITIS 12/14/2017 ARTURO AMOS CATALYST OPERATOR CHIEF Ot 723.1 CERVICALGIA 12/14/2017 ARTURO AMOS CATALYST OPERATOR CHIEF Ot V65.49 OTHER SPECIFIED COUNSELING 12/14/2017 ARTURO AMOS CATALYST OPERATOR CHIEF Ot V76.12 OTH SCREEN MAMMO-MALIGN NEOPLASM OF YOEL 12/14/2017 ARTURO AMOS CATALYST OPERATOR CHIEF Ot V76.51 SCREEN MAL NEOP-COLON 12/14/2017 ARTURO AMOS CATALYST OPERATOR CHIEF Ot 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 12/14/2017 ARTURO AMOS CATALYST OPERATOR CHIEF Ot 611.89 OTHER SPECIFIED DISORDERS OF BREAST 12/14/2017 ARTURO AMOS CATALYST OPERATOR CHIEF Ot V76.12 OTH SCREEN MAMMO-MALIGN NEOPLASM OF YOEL 12/14/2017 ARTURO AMOS Madelyn CATALYST OPERATOR CHIEF Ot 793.80 UNSPEC ABNORMAL MAMMOGRAM 12/14/2017 JASIEL LAU MD Ot 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 12/14/2017 JASIEL LAU MD Ot 473.9 CHRONIC SINUSITIS NOS 12/14/2017 JASIEL LAU MD Ot 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 12/14/2017 JASIEL LAU MD Ot J32.9 CHRONIC SINUSITIS, UNSPECIFIED 12/14/2017 JASIEL LAU MD Ot 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 12/14/2017 JASIEL LAU MD Ot J34.3 HYPERTROPHY OF NASAL TURBINATES 12/14/2017 JASIEL LAU MD Ot V72.63 PRE-PROCEDURAL LABORATORY EXAMINATION 12/14/2017 JASIEL LAU MD Ot V72.83 EXAM PRE-OPERATIVE NEC 12/14/2017 JASIEL LAU MD Ot V74.8 SCREEN-BACTERIAL DIS NEC 12/14/2017 JASIEL LAU MD Ot Z01.812 ENCOUNTER FOR PREPROCEDURAL LABORATORY E 12/14/2017 JASIEL LAU MD Ot Z01.818 ENCOUNTER FOR OTHER PREPROCEDURAL EXAMIN 12/14/2017 PNENY AYERS Ot 733.6 TIETZE'S DISEASE 12/14/2017 PENNY AYERS Ot M94.0 CHONDROCOSTAL JUNCTION SYNDROME [TIETZE] 12/14/2017 PENNY AYERS Ot 793.80 UNSPEC ABNORMAL MAMMOGRAM 12/14/2017 PENNY AYERS Ot J32.0 CHRONIC MAXILLARY SINUSITIS 12/14/2017 PENNY AYERS Ot R07.0 PAIN IN THROAT Procedures Code Description [place] [address] ROUTINE VENIPUNCTURE 11/07/2012 17235 A1C (IN-HOUSE) 11/07/2012 44937 CMP 11/07/2012 31597 LIPID PANEL 11/07/2012 7325581 GFR CALC (RESULT ONLY) 11/07/2012 39801 ROUTINE VENIPUNCTURE 07/31/2013 51015 A1C (RML) 07/31/2013 [id number] GFR CALC (RESULT ONLY) 07/31/[address] [facility] 07/31/2013 69743 LIPID PANEL 07/31/2013 05471 TSH 07/31/2013 Otolarynyady Lau Jasiel 08/08/2013 93229 MAMMOGRAM, SCREENING 10/02/2013 25108 MAMMOGRAM DX, RIGHT 10/16/2013 Gastroent Genaro Oliva 10/16/2013 20480 HEMOCCULT 10/16/2013 41138 HEMOCCULT 10/16/2013 52452 MICRO ALBUMIN-IN HOUSE 07/17/2014 84573 UA W/MICROSCOPY 07/18/2014 50222 ROUTINE VENIPUNCTURE 07/22/20142546787 GFR CALC (RESULT ONLY) 07/22/[address] [facility] 07/22/2014 11736 LIPID PANEL 07/22/2014 79833 EKG, TRACING (IN-HOUSE) 08/21/2014 46339 XRAY CHEST 2 VIEW 08/23/2014 Results Test Result Range CBC - 03/17/17 09:37 WHITE BLOOD CELL COUNT 6.1 Thousand/uL 3.8-10.8 RED BLOOD CELL COUNT 4.88 Million/uL 3.80-5.10 HEMOGLOBIN 13.6 g/dL 11.7-15.5 HEMATOCRIT 41.8 % 35.0-45.0 MCV 85.7 fL 80.0-100.0 MCH 27.9 pg 27.0-33.0 MCHC 32.5 g/dL 32.0-36.0 RDW 13.4 % 11.0-15.0 PLATELET COUNT 248 Thousand/uL 140-400 MPV 11.0 fL 7.5-12.5 ABSOLUTE NEUTROPHILS 3520 cells/uL 7906-4885 ABSOLUTE LYMPHOCYTES 1702 cells/uL 850-3900 ABSOLUTE MONOCYTES 476 cells/uL 200-950 ABSOLUTE EOSINOPHILS 384 cells/uL 15-500 ABSOLUTE BASOPHILS 18 cells/uL 0-200 NEUTROPHILS 57.7 % NRG LYMPHOCYTES 27.9 % NRG MONOCYTES 7.8 % NRG EOSINOPHILS 6.3 % NRG BASOPHILS 0.3 % NRG [facility] - 11/24/17 08:10 GLUCOSE 96 mg/dL 65-99 UREA NITROGEN (BUN) 16 mg/dL 7-25 CREATININE 0.67 mg/dL 0.50-0.99 eGFR NON-AFR. PRYDEINIG 95 mL/min/1.73m2 > OR=60 eGFR 110 mL/min/1.73m2 > OR=60 BUN/CREATININE RATIO NOT APPLICABLE (calc) 6-22 SODIUM 140 mmol/L 135-146 POTASSIUM 4.2 mmol/L 3.5-5.3 CHLORIDE 103 mmol/L 98-110 CARBON DIOXIDE 29 mmol/L 20-31 CALCIUM 9.3 mg/dL 8.6-10.4 PROTEIN, TOTAL 6.8 g/dL 6.1-8.1 ALBUMIN 4.3 g/dL 3.6-5.1 GLOBULIN 2.5 g/dL (calc) 1.9-3.7 ALBUMIN/GLOBULIN RATIO 1.7 (calc) 1.0-2.5 BILIRUBIN, TOTAL 0.5 mg/dL 0.2-1.2 ALKALINE PHOSPHATASE 77 U/L 33-130 AST 15 U/L 10-35 ALT 15 U/L 6-29 Complete blood count (CBC) with automated white blood cell (WBC) differential - 12/14/17 14:55 Blood leukocytes automated count (number/volume) 7.2 10*3/uL 4.3-11.0 Blood erythrocytes automated count (number/volume) 4.72 10*6/uL 4.35-5.85 Venous blood hemoglobin measurement (mass/volume) 13.0 g/dL 11.5-16.0 Blood hematocrit (volume fraction) 40 % 35-52 Automated erythrocyte mean corpuscular volume 84 [foz_us] 80-99 Automated erythrocyte mean corpuscular hemoglobin (mass per erythrocyte) 28 pg 25-34 Automated erythrocyte mean corpuscular hemoglobin concentration measurement ( mass/volume) 33 g/dL 32-36 Automated erythrocyte distribution width ratio 14.4 % 10.0-14.5 Automated blood platelet count (count/volume) 242 10*3/uL 130-400 Automated blood platelet mean volume measurement 10.6 [foz_us] 7.4-10.4 Automated blood neutrophils/100 leukocytes 65 % 42-75 Automated blood lymphocytes/100 leukocytes 22 % 12-44 Blood monocytes/100 leukocytes 9 % 0-12 Automated blood eosinophils/100 leukocytes 4 % 0-10 Automated blood basophils/100 leukocytes 0 % 0-10 Blood neutrophils automated count (number/volume) 4.7 10*3 1.8-7.8 Blood lymphocytes automated count (number/volume) 1.6 10*3 1.0-4.0 Blood monocytes automated count (number/volume) 0.7 10*3 0.0-1.0 Automated eosinophil count 0.3 10*3/uL 0.0-0.3 Automated blood basophil count (count/volume) 0.0 10*3/uL 0.0-0.1 Whole blood basic metabolic panel - 12/14/17 14:55 Serum or plasma sodium measurement (moles/volume) 140 mmol/L 135-145 Serum or plasma potassium measurement (moles/volume) 4.1 mmol/L 3.6-5.0 Serum or plasma chloride measurement (moles/volume) 103 mmol/L 98-107 Carbon dioxide 25 mmol/L 21-32 Serum or plasma anion gap determination (moles/volume) 12 mmol/L 5-14 Serum or plasma urea nitrogen measurement (mass/volume) 14 mg/dL 7-18 Serum or plasma creatinine measurement (mass/volume) 0.71 mg/dL 0.60-1.30 Serum or plasma urea nitrogen/creatinine mass ratio 20 NRG Serum or plasma creatinine measurement with calculation of estimated glomerular filtration rate > NRG Serum or plasma glucose measurement (mass/volume) 98 mg/dL 70-105 Serum or plasma calcium measurement (mass/volume) 9.2 mg/dL 8.5-10.1 Methicillin resistant Staphylococcus aureus (MRSA) screening culture - 14:55 Methicillin resistant Staphylococcus aureus (MRSA) screening culture NEG NRG Encounters ACCT No. Visit Date/Time Discharge Status Pt. Type Provider Facility Loc./Unit Complaint [id number] 08/21/2014 15:47:00 08/21/2014 23:59:59 CLS Outpatient PENNY AYERS APRN [id number] 07/22/2014 07:58:00 07/22/2014 23:59:59 CLS Outpatient PENNY AYERS APRN [id number] 07/17/2014 15:33:00 07/17/2014 23:59:59 CLS Outpatient CARLTON CRENSHAW DO [id number] 10/16/2013 10:49:00 10/16/2013 23:59:59 CLS Outpatient ARTURO AMOS APRN [id number] 10/02/2013 09:47:00 10/02/2013 23:59:59 CLS Outpatient ARTURO AMOS APRN [id number] 08/08/2013 10:18:00 08/08/2013 23:59:59 CLS Outpatient CARLTON CRENSHAW DO [id number] 07/31/2013 09:31:00 07/31/2013 23:59:59 CLS Outpatient PENNY AYERS APRN [id number] 07/04/2013 14:46:00 07/04/2013 23:59:59 CLS Outpatient CARLTON CRENSHAW DO [id number] 05/30/2013 14:40:00 05/30/2013 23:59:59 CLS Outpatient BHUMI REDNROWENA Ladarius [id number] 05/22/2013 09:27:00 05/22/2013 23:59:59 CLS Outpatient CARLTON CRENSHAW DO [id number] 04/16/2013 10:15:00 04/16/2013 23:59:59 CLS Outpatient CARLTON CRENSHAW DO [id number] 05/03/2012 09:34:00 05/03/2012 23:59:59 CLS Outpatient [id number] 05/03/2012 09:34:00 05/03/2012 23:59:59 CLS Outpatient [id number] 12/17/2012 13:45:00 Document Registration [id number] 11/07/2012 10:53:00 Document Registration [id number] 11/24/2017 08:00:00 11/24/2017 23:59:59 CLS Outpatient PENNY AYERS APRN [facility] [id number] 11/24/2017 08:00:00 Document Registration [id number] 03/17/2017 09:40:00 Document Registration [id number] 12/14/2017 14:30:00 12/14/2017 15:00:00 DIS Outpatient MICKY EUGENE, JASIEL Quiroz [facility] PREOP TONGUE BASE LESION [id number] 12/01/2017 10:43:00 12/01/2017 23:59:59 CLS Outpatient PENNY AYERS [facility] RAD R07.0 PAIN IN THROAT [id number] 11/21/2014 09:08:00 11/21/2014 23:59:59 CLS Outpatient PENNY AYERS [facility] RAD ABNORMAL MAMMO [id number] 11/05/2014 10:27:00 11/05/2014 23:59:59 CLS Outpatient PENNY AYERS Ozzie SANDOVAL [facility] RAD TIETZE'S DISEASE [id number] 06/20/2014 06:50:00 06/20/2014 12:42:00 DIS Outpatient JASIEL LAU MD [facility] CHRONIC SINUSITIS; HYPERTROPHIC TURBINATES [id number] 06/13/2014 10:43:00 06/13/2014 23:59:59 CLS Outpatient JASIEL LAU MD [facility] PREOP CHRONIC SINUSITIS; HYPERTROPHIC TURBINATES [id number] 05/12/2014 12:31:00 05/12/2014 23:59:59 CLS Outpatient ARTURO AMOS APRN [facility] RAD ABNORMAL MAMMO [id number] 10/24/2013 13:39:00 10/24/2013 23:59:59 CLS Outpatient ARTURO AMOS CATALYST OPERATOR CHIEF [facility] RAD ABN MAMMO [id number] 10/11/2013 10:03:00 10/11/2013 23:59:59 CLS Outpatient ARTURO AMOS APRN [facility] RAD SCREENING [id number] 09/25/2013 14:11:00 09/25/2013 23:59:59 CLS Outpatient JASIEL LAU MD [facility] RAD CHONIC SINUSITIS [id number] 08/22/2013 13:11:00 08/22/2013 23:59:59 CLS Outpatient JASIEL LAU MD [facility] RAD PAIN WITH SWALLOWING, GLOBUS [id number] 03/04/2013 07:11:00 03/04/2013 10:00:00 DIS Outpatient FRANCES EUGENE, LUCY Cunha [facility] REFLUX [id number] 02/28/2013 07:15:00 02/28/2013 23:59:59 CLS Outpatient [id number] 12/22/2017 10:00:00 PEN Preadmit JASIEL LAU MD [facility] BASE OF TONGUE LESION
[2017-12-22] MEDS ORDERED: LACTATED RINGERS 1,000 ML IV PRN (07:33)
[2017-12-22 07:41] VITALS: BP 129/66
--- NOTE | 2017-12-22 08:19 | Progress Note-Pre Operative ---
Pre-Operative Progress Note H&P Reviewed The H&P was reviewed, patient examined and no changes noted. Date Seen by Provider: Dec 22, 2017 Time Seen by Provider: 08:00 Date H&P Reviewed: Dec 22, 2017 Time H&P Reviewed: 08:00 Pre-Operative Diagnosis: Nasal Tip Lesion JASIEL WEEKS MD Dec 22, 2017 8:19 am
[2017-12-22] MEDS ORDERED: LIDOCAINE/EPI 1%-1:200,000 (XYLOCAINE) 10 ML VIAL ONE (08:30)
[2017-12-22] MEDS ORDERED: SEVOFLURANE (ULTANE) 15 ML INHAL SOLN ONE ×2 (08:39→09:07)
[2017-12-22] MEDS ORDERED: proPOfol 200 MG/20 ML (DIPRIVAN) VIAL IV ONE ×2 (08:39→09:07)
[2017-12-22] MEDS ORDERED: ONDANSETRON 4 MG/2 ML (SDV) Z0FRAN ONE (08:39)
[2017-12-22] MEDS ORDERED: LIDOCAINE PF 2% 5 ML (XYLOCAINE) VIAL ONE (09:07)
[2017-12-22] MEDS ORDERED: HURRICAINE EXT TUBE (BENZOCAINE) ONE (09:07)
[2017-12-22] MEDS ORDERED: DEXAMETHASONE 10 MG/ML (DECADRON) 1 ML VIAL ONE (09:07)
[2017-12-22] MEDS ORDERED: LACTATED RINGERS 1,000 ML IV ONE (09:07)
[2017-12-22] MEDS ORDERED: MIDAZOLAM 2 MG/2 ML (VERSED) VIAL ONE (09:08)
[2017-12-22] MEDS ORDERED: fentaNYL INJECTION 100 MCG/2 ML AMP ONE (09:08)
[2017-12-22] MEDS ORDERED: ATRACURIUM 50 MG/5 ML (TRACRIUM) IV ONE ×2 (09:08→14:27)
--- NOTE | 2017-12-22 09:40 | Progress Note-Post Operative ---
Post-Operative Progess Note Surgeon (s)/Observer Electrical Prospecting (s) Surgeon JASIEL WEEKS MD Observer Electrical Prospecting n/a Pre-Operative Diagnosis Nasal Tip Lesion Post-Operative Diagnosis same Post-Op Procedure Note Date of Procedure: Dec 22, 2017 Name of Procedure Performed: Direct Laryngoscopy with Biopsy of Base of Tongue Description & Findings Description and Findings: n/a Anesthesia Type get Estimated Blood Loss minimal Packing none. Specimen(s) collected/removed base of tongue biopsies to pathology JASIEL WEEKS MD Dec 22, 2017 9:40 am
[2017-12-22] MEDS ORDERED: ACETAMINOPHEN 325 MG TABLET/CAPLET (TYLENOL) PO PRN (09:45)
[2017-12-22] MEDS ORDERED: PROMETHAZINE INJ 25 MG/ML (PHENERGAN) AMP IV PRN (09:45)
[2017-12-22] MEDS ORDERED: HYDROcodone/APAP 5 MG/325 MG (LORTAB) TAB PO PRN (09:45)
[2017-12-22] MEDS ORDERED: GLYCOPYRROLATE 0.2 MG/ML (ROBINUL) 2 ML VIAL ONE (09:51)
[2017-12-22] MEDS ORDERED: NEOSTIGMINE 1 MG/ML 5 ML SYRINGE ONE (09:51)
[2017-12-22] MEDS ORDERED: morphine INJ 10 MG/ML 1ML (SYR OR VIAL) IVP PRN (10:15)
[2017-12-22] MEDS ORDERED: ONDANSETRON 4 MG/2 ML (SDV) Z0FRAN IVP PRN (10:15)
[2017-12-22] MEDS ORDERED: MEPERIDINE (DEMEROL) INJ 50 MG/ML IVP PRN (10:15)
[2017-12-22 11:00] VITALS: BP 141/68
--- NOTE | 2017-12-22 11:02 | Anesthesia-General Post-Op ---
General Patient Condition Mental Status/LOC: Same as Preop Cardiovascular: Satisfactory Nausea/Vomiting: Absent Respiratory: Satisfactory Pain: Controlled Complications: Absent Post Op Complications Complications None Follow Up Care/Instructions Patient Instructions None needed. Anesthesia/Patient Condition Patient Condition Patient is doing well, no complaints, stable vital signs, no apparent adverse anesthesia problems. PAPI BA DO Dec 22, 2017 11:02
[2017-12-22 11:30] VITALS: BP 137/65
[2017-12-22 12:00] VITALS: BP 155/80
[2017-12-22 12:35] VITALS: BP 155/80
== END 2017-12-22 12:35 | disposition home or self-care (01) ==
LOC: SDC 06:45
PROVIDERS: ATTEND Otolaryngology Otolaryngology/Facial Plastic Surgery
DX: K13.29 Other disturbances of oral epithelium, including tongue (principal); I10 Essential (primary) hypertension; R73.03 Prediabetes; Z79.899 Other long term (current) drug therapy
CPT/HCPCS: 88305; 88331